=== PATIENT | female | born 1950 | race Caucasian/White ===

== ENCOUNTER 2016-10-05 16:00 | Outpatient (RCR) | payer MEDICARE ==
[~2016-10-05 16:00] MED LIST: AMBIEN 5MG TABLE5 MG PO; AMLODIPINE5 MG PO; AMOXICILLIN 50500 MG; AMOXICILLIN 50500 MG PO; ASCRIPTIN325 MG PO; ASPI325T6 PO; ASPIRIN 32325 MG/TAB PO; ASPIRIN 81M81 MG/TA2 PO; ASPIRIN E.C. 8181 MG PO; ATENOLOL; ATENOLOL25 MG PO; ATENOLOL50 MG PO; ATORVASTATIN; AZO MENOPAUSE1 X PO; BYSTOLIC10 MG PO; BYSTOLIC20 MG PO; CALCIUM 500500 M2 PO; CHROMIUM PO; CIDER VINEGAR PO; CLOPIDOGREL PO; COMBIRESP IH; COMBIVENT INH14.7 GM IH; CRESTOR 10MG10 MG PO; CRESTOR20 MG PO; DARVOCET N 101 UDTAB PO; EPA FISH OIL1000 MG PO; EVENING PRIMRO500 M1 PO; EVENING PRIMRO500 MG PO; FAMILY PHARMAC0.4 MG PO; FIBRO-XL1 CAP PO; FISH OIL CONC1000 MG PO; FISH OIL1 IU PO; FISH OIL1000 MG PO; FLEXERIL 1010 MG/TAB PO; FLOVENT 220MCG7.9 GM IH; FLOVENT0.22 MG/AC IH; FOLIC ACID 11 MG/TA1 PO; FOLIC ACID0.4 MG PO; GEMFIBROZIL600 MG PO; GLUCOPHAGE500 MG/TAB PO; GLUCOSAMIN 500 PO; GLUCOSAMINE & C1 CAP PO; GLUCOSAMINE & C1 TAB PO; GLUCOSAMINE500 M2 PO; GLUMETZA500 MG PO; IRON325 M1 PO; KLONOPIN0.5 MG PO; LEVAQUIN 5500 MG/TA1 PO; LEVAQUIN 750MG750 MG PO; LIPITOR 10MG10 MG PO; LISINOPRIL10 MG PO; LOPID 600M600 MG/TAB PO; M2 CHROMIUM500 MCG PO; MEGA RED; NITRO-DUR0.2 MG/PAT TD; NITROLINGU0.4 MG/ACT SL; NITROSTAT0.4 MG/TAB SL; NORCO 325 MG-51 TAB PO; NORVASC2.5 MG PO; PAXIL 30MG30 MG PO; PAXIL PO; PAXIL10 MG PO; PAXIL20 MG PO; PEPCID 20MG TAB20 MG PO; PEPCID40 MG PO; PLAVIX 75MG TAB75 MG PO; PREDNISONE 5MG5 MG PO; PREMARIN0.3 MG PO; PREMARIN0.625 MG PO; PRILOSEC 20MG20 MG PO; PROPRANOLOL10 MG PO; PSYLLIUM HUSKS PO; RANEXA1000 MG PO; TRICOR200 MG PO; ULTRAM 50MG TAB50 MG PO; VITAMIN B-1000 MCG/T PO; VITAMIN B-12100 MCG PO; VITAMIN B1225 MCG PO; VITAMIN B12500 MCG PO; VITAMIN D1000 IU PO; VITAMIN D31000 IU PO; XANAX0.25 MG PO; ZANAFLEX 4MG TAB4 MG PO; ZESTRIL 10MG10 MG PO; ZESTRIL10 MG PO; ZOCOR PO; ZOCOR40 MG PO; [UNRECOGNIZED DRUG - OTHER] PO; [UNRECOGNIZED DRUG - OTHER] TD
== END 2016-12-01 12:48 | disposition home or self-care (01) ==
LOC: MKS.ESL.PT 16:00
DX: Z86.73 Personal history of transient ischemic attack (TIA), and cerebral infarction without residual deficits (principal)
CPT/HCPCS: G9162-GN; G9163-GN

== ENCOUNTER 2016-12-30 20:16 | Emergency (ER) | payer MEDICARE ==
[~2016-12-30] VITALS: Ht 152.4 cm; Wt 77.3 kg
[2016-12-30 20:24] VITALS: PULSE 68; TEMP 97.7
[2016-12-30 21:11] LABS: INR 1.1 (0.8-3.0)
[2016-12-30 21:13] LABS: PARTIAL THROMBOPLASTIN TIME 38.7 SECONDS (26.0-37.0)
[2016-12-30] MEDS ORDERED: AMOXICILLIN 8751 TAB PO (21:47)
[2016-12-30 21:56] VITALS: BP 130/89
== END 2016-12-30 21:57 | disposition home or self-care (01) ==
LOC: COL.ER 20:16
PROVIDERS: Emergency Medicine
DX: S62.512A Displaced fracture of proximal phalanx of left thumb, initial encounter for closed fracture (principal); S51.852A Open bite of left forearm, initial encounter; S61.052A Open bite of left thumb without damage to nail, initial encounter; W54.0XXA Bitten by dog, initial encounter; Y92.009 Unspecified place in unspecified non-institutional (private) residence as the place of occurrence of the external cause; Z79.01 Long term (current) use of anticoagulants; I10 Essential (primary) hypertension; I25.10 Atherosclerotic heart disease of native coronary artery without angina pectoris; Z95.1 Presence of aortocoronary bypass graft; Z95.5 Presence of coronary angioplasty implant and graft

== ENCOUNTER 2017-01-08 11:20 | Observation (INO) | payer MEDICARE ==
[~2017-01-08] VITALS: Ht 162.6 cm; Wt 79.5 kg
[~2017-01-08 11:20] MED LIST changes: +AMOXICILLIN 8751 TAB PO
[2017-01-08 12:07] LABS: BASO % 0.1 % (0.0-2.0); EOS # 0.2 (0.0-0.7); EOS % 2.2 % (0-4.0); GRAN # 4.5 (1.4-6.5); GRAN % 60.2 % (42.2-75.2); LYMPH # 2.2 (1.2-3.4); LYMPH % 29.5 % (20.0-51.0); MEAN CELL VOLUME 95 fl (80.0-100.0); MEAN CORPUSCULAR HGB CONC 31 g/dl (33.0-37.0); MEAN PLATELET VOLUME 10.5 fl (7.4-10.4); MONO # 0.6 (0.1-0.6); MONO % 7.7 % (1.7-9.3); PLATELET COUNT 230 K/mm3 (130-400); RED BLOOD COUNT 3.28 M/mm3 (4.10-5.30); REDCELL DISTRIBUTION WIDTH-CV 13.7 % (11.5-14.5); WHITE BLOOD COUNT 7.4 K/mm3 (4.8-10.8)
[2017-01-08 12:10] LABS: HEMATOCRIT 31.1 % (37.0-47.0); HEMOGLOBIN 9.7 g/dl (12.5-16.0); MEAN CORPUSCULAR HEMOGLOBIN 30 pg (27.0-31.0)
[2017-01-08 12:12] LABS: INR 1.1 (0.8-3.0)
[2017-01-08 12:15] LABS: PARTIAL THROMBOPLASTIN TIME 38.2 SECONDS (26.0-37.0)
[2017-01-08 12:19] LABS: ADJUSTED CALCIUM 9.2 mg/dL (8.4-10.2); ALANINE AMINOTRANSFERASE 26 U/L (9-52); ALBUMIN 3.8 gm/dL (3.5-5.0); ALKALINE PHOSPHATASE 69 U/L (50-136); ANION GAP 13 mmol/L (7-16); BILIRUBIN,TOTAL 0.6 mg/dL (0.0-1.0); BLOOD UREA NITROGEN 13 mg/dL (7-17); CARBON DIOXIDE 27 mmol/L (22-30); CHLORIDE 101 mmol/L (98-107); CREATINE KINASE 65 U/L (30-135); CREATININE, serum 0.66 mg/dL (0.52-1.25); GLUCOSE 123 mg/dL (74-106); POTASSIUM 4.3 mmol/L (3.4-5.0); SODIUM 141 mmol/L (137-145); TOTAL PROTEIN 7.2 gm/dL (6.4-8.2)
[2017-01-08 12:27] LABS: B-TYPE NATRIURETIC PEPTIDE 67 pg/mL (0-125)
[2017-01-08 12:43] LABS: TROPONIN-I < 0.012 ng/mL (0.000-0.034)
[2017-01-08 12:45] LABS: PH 5 (5-8); SQUAMOUS EPITHELIAL 0-2 /hpf; URINE APPEARANCE Clear; URINE BACTERIA None Seen /hpf; URINE BILIRUBIN Negative (NEGATIVE); URINE BLOOD Negative (NEGATIVE); URINE COLOR Yellow; URINE GLUCOSE Negative (NEGATIVE); URINE KETONE Negative (NEGATIVE); URINE RBC 0-2 /hpf; URINE UROBILINOGEN Negative (NEGATIVE); URINE WBC None Seen /hpf
[2017-01-08] MEDS ORDERED: NORCO 325 MG-7.1 TAB PO (13:55)
[2017-01-08 16:45] VITALS: BP 135/52; PULSE 72; TEMP 98.5
[2017-01-08 19:58] VITALS: BP 140/52; PULSE 73; TEMP 98.4; TEMP 99.2
[2017-01-08 23:04] VITALS: BP 117/40; PULSE 70; TEMP 99.2
[2017-01-09 03:27] VITALS: BP 106/34; PULSE 76; TEMP 99.3
[2017-01-09 07:38] VITALS: BP 126/50; PULSE 64; TEMP 98
[2017-01-09 11:55] VITALS: BP 135/59; PULSE 62; TEMP 97.9
[2017-01-09] MEDS ORDERED: TYLENOL 500MG500 MG PO (13:45)
== END 2017-01-09 19:19 | disposition home or self-care (01) ==
LOC: COL.ER 11:20 → MEDICAL 15:44
PROVIDERS: Emergency Medicine
DX: T40.601A Poisoning by unspecified narcotics, accidental (unintentional), initial encounter (principal); R25.1 Tremor, unspecified; I25.10 Atherosclerotic heart disease of native coronary artery without angina pectoris; E11.9 Type 2 diabetes mellitus without complications; I10 Essential (primary) hypertension
CPT/HCPCS: A9585; G0378; G8987-GO; G8988-GO; J1650; J2060; J2310; J7030

== ENCOUNTER 2017-04-12 16:41 | Emergency (ER) | payer MEDICARE ==
[~2017-04-12] VITALS: Ht 149.9 cm; Wt 78.2 kg
[~2017-04-12 16:41] MED LIST changes: +NORCO 325 MG-7.1 TAB PO; +TYLENOL 500MG500 MG PO
[2017-04-12 16:44] VITALS: TEMP 97.9
[2017-04-12 17:29] LABS: BASO % 0.3 % (0.0-2.0); EOS # 0.1 (0.0-0.7); EOS % 2.1 % (0-4.0); GRAN # 2.8 (1.4-6.5); GRAN % 46.1 % (42.2-75.2); HEMOGLOBIN 10.6 g/dl (12.5-16.0); LYMPH # 2.7 (1.2-3.4); LYMPH % 44.1 % (20.0-51.0); MEAN CELL VOLUME 94 fl (80.0-100.0); MEAN CORPUSCULAR HEMOGLOBIN 30 pg (27.0-31.0); MEAN CORPUSCULAR HGB CONC 32 g/dl (33.0-37.0); MEAN PLATELET VOLUME 11.3 fl (7.4-10.4); MONO # 0.4 (0.1-0.6); MONO % 7.1 % (1.7-9.3); PLATELET COUNT 171 K/mm3 (130-400); RED BLOOD COUNT 3.53 M/mm3 (4.10-5.30); REDCELL DISTRIBUTION WIDTH-CV 14.6 % (11.5-14.5); WHITE BLOOD COUNT 6.1 K/mm3 (4.8-10.8)
[2017-04-12 17:41] LABS: ADJUSTED CALCIUM 9.2 mg/dL (8.4-10.2); ALANINE AMINOTRANSFERASE 22 U/L (9-52); ALBUMIN 3.9 gm/dL (3.5-5.0); ALKALINE PHOSPHATASE 60 U/L (50-136); ANION GAP 11 mmol/L (7-16); BILIRUBIN,TOTAL 0.5 mg/dL (0.0-1.0); BLOOD UREA NITROGEN 21 mg/dL (7-17); CALCIUM 9.1 mg/dL (8.4-10.2); CARBON DIOXIDE 22 mmol/L (22-30); CHLORIDE 104 mmol/L (98-107); CREATININE, serum 0.86 mg/dL (0.52-1.25); GLUCOSE 93 mg/dL (74-106); LIPASE 40 U/L (23-300); POTASSIUM 4.9 mmol/L (3.4-5.0); SODIUM 137 mmol/L (137-145); TOTAL PROTEIN 6.9 gm/dL (6.4-8.2)
[2017-04-12 17:45] LABS: C-REACTIVE PROTEIN < 0.5 mg/dL (0.0-0.9)
[2017-04-12 17:51] LABS: TROPONIN-I < 0.012 ng/mL (0.000-0.034)
[2017-04-12 17:54] LABS: ERYTHROCYTE SEDIMENTATION RATE 22 mm/hr (0-30)
[2017-04-12 18:01] LABS: PH 5 (5-8); URINE APPEARANCE Hazy; URINE BACTERIA Rare /hpf; URINE BILIRUBIN Negative (NEGATIVE); URINE BLOOD Negative (NEGATIVE); URINE COLOR Yellow; URINE GLUCOSE Negative (NEGATIVE); URINE KETONE Negative (NEGATIVE); URINE RBC 20-50 /hpf; URINE UROBILINOGEN Negative (NEGATIVE)
[2017-04-12 18:03] LABS: URINE WBC >50 /hpf
[2017-04-12 18:51] LABS: PH 5 (5-8); SQUAMOUS EPITHELIAL 0-2 /hpf; URINE APPEARANCE Clear; URINE BACTERIA None Seen /hpf; URINE BILIRUBIN Negative (NEGATIVE); URINE BLOOD Negative (NEGATIVE); URINE COLOR Straw; URINE GLUCOSE Negative (NEGATIVE); URINE KETONE Negative (NEGATIVE); URINE RBC 0-2 /hpf; URINE UROBILINOGEN Negative (NEGATIVE)
[2017-04-12 19:23] VITALS: BP 134/60; PULSE 62
== END 2017-04-12 19:24 | disposition home or self-care (01) ==
LOC: COL.ER 16:41
PROVIDERS: Emergency Medicine
DX: R25.8 Other abnormal involuntary movements (principal); D64.9 Anemia, unspecified; I10 Essential (primary) hypertension; I69.851 Hemiplegia and hemiparesis following other cerebrovascular disease affecting right dominant side; E11.9 Type 2 diabetes mellitus without complications; Z95.1 Presence of aortocoronary bypass graft; Z79.84 Long term (current) use of oral hypoglycemic drugs; Z79.02 Long term (current) use of antithrombotics/antiplatelets
CPT/HCPCS: J7030

== ENCOUNTER 2017-07-18 20:26 | Emergency (ER) | payer MEDICARE ==
[~2017-07-18] VITALS: Ht 149.9 cm; Wt 77.7 kg
[2017-07-18 20:29] VITALS: TEMP 98.8
[2017-07-18 21:26] LABS: BASO % 0.2 % (0.0-2.0); EOS # 0.1 (0.0-0.7); EOS % 1.4 % (0-4.0); GRAN # 2.3 (1.4-6.5); GRAN % 41.4 % (42.2-75.2); LYMPH # 2.7 (1.2-3.4); MEAN CELL VOLUME 95 fl (80.0-100.0); MEAN CORPUSCULAR HGB CONC 32 g/dl (33.0-37.0); MEAN PLATELET VOLUME 11.1 fl (7.4-10.4); MONO # 0.4 (0.1-0.6); MONO % 7.6 % (1.7-9.3); PLATELET COUNT 183 K/mm3 (130-400); RED BLOOD COUNT 3.39 M/mm3 (4.10-5.30); REDCELL DISTRIBUTION WIDTH-CV 14.4 % (11.5-14.5); WHITE BLOOD COUNT 5.5 K/mm3 (4.8-10.8)
[2017-07-18 21:30] LABS: HEMATOCRIT 32.3 % (37.0-47.0); HEMOGLOBIN 10.3 g/dl (12.5-16.0); MEAN CORPUSCULAR HEMOGLOBIN 30 pg (27.0-31.0)
[2017-07-18 21:41] LABS: ADJUSTED CALCIUM 9.4 mg/dL (8.4-10.2); ALBUMIN 4.2 gm/dL (3.5-5.0); BILIRUBIN,TOTAL 0.4 mg/dL (0.0-1.0); CALCIUM 9.6 mg/dL (8.4-10.2); CREATININE, serum 0.89 mg/dL (0.52-1.25); TOTAL PROTEIN 7.1 gm/dL (6.4-8.2)
[2017-07-18] MEDS ORDERED: FLEXERIL 1010 MG/TAB PO (21:51)
[2017-07-18 22:32] VITALS: BP 128/62; PULSE 72
== END 2017-07-18 22:32 | disposition home or self-care (01) ==
LOC: COL.ER 20:26
PROVIDERS: Emergency Medicine
DX: G25.3 Myoclonus (principal); E11.9 Type 2 diabetes mellitus without complications; I25.10 Atherosclerotic heart disease of native coronary artery without angina pectoris; I10 Essential (primary) hypertension; Z86.73 Personal history of transient ischemic attack (TIA), and cerebral infarction without residual deficits; Z95.5 Presence of coronary angioplasty implant and graft; Z90.710 Acquired absence of both cervix and uterus; Z87.891 Personal history of nicotine dependence; Z79.82 Long term (current) use of aspirin; Z79.84 Long term (current) use of oral hypoglycemic drugs

== ENCOUNTER 2017-09-18 08:32 | Emergency (ER) | payer MEDICARE ==
[~2017-09-18] VITALS: Ht 152.4 cm; Wt 73.6 kg
[2017-09-18 08:37] VITALS: BP 154/70; TEMP 97.8
[2017-09-18 09:15] LABS: BASO % 0.4 % (0.0-2.0); EOS # 0.1 (0.0-0.7); EOS % 2.6 % (0-4.0); GRAN # 2.9 (1.4-6.5); GRAN % 54.1 % (42.2-75.2); LYMPH # 1.9 (1.2-3.4); MEAN CELL VOLUME 99 fl (80.0-100.0); MEAN CORPUSCULAR HGB CONC 31 g/dl (33.0-37.0); MONO # 0.4 (0.1-0.6); MONO % 7.7 % (1.7-9.3); PLATELET COUNT 197 K/mm3 (130-400); RED BLOOD COUNT 3.41 M/mm3 (4.10-5.30); WHITE BLOOD COUNT 5.4 K/mm3 (4.8-10.8)
[2017-09-18 09:16] LABS: HEMATOCRIT 33.9 % (37.0-47.0); HEMOGLOBIN 10.6 g/dl (12.5-16.0); MEAN CORPUSCULAR HEMOGLOBIN 31 pg (27.0-31.0)
[2017-09-18 09:23] LABS: PROTHROMBIN TIME 11.5 SECONDS (9.7-12.8)
[2017-09-18 09:25] LABS: ADJUSTED CALCIUM 9.2 mg/dL (8.4-10.2); ALANINE AMINOTRANSFERASE 24 U/L (9-52); ALBUMIN 3.7 gm/dL (3.5-5.0); ALKALINE PHOSPHATASE 47 U/L (50-136); ANION GAP 7 mmol/L (7-16); BILIRUBIN,TOTAL 0.3 mg/dL (0.0-1.0); BLOOD UREA NITROGEN 16 mg/dL (7-17); CARBON DIOXIDE 27 mmol/L (22-30); CHLORIDE 108 mmol/L (98-107); GLUCOSE 87 mg/dL (74-106); MAGNESIUM 1.8 mg/dL (1.6-2.3); PARTIAL THROMBOPLASTIN TIME 27.2 SECONDS (26.0-37.0); POTASSIUM 4.6 mmol/L (3.4-5.0); SODIUM 142 mmol/L (137-145); TOTAL PROTEIN 6.1 gm/dL (6.4-8.2)
[2017-09-18 09:38] LABS: TROPONIN-I < 0.012 ng/mL (0.000-0.034)
[2017-09-18 10:38] LABS: COLLECTION METHOD CLEAN CATCH
[2017-09-18 10:54] LABS: MUCOUS Present /lpf; PH 5 (5-8); SQUAMOUS EPITHELIAL 0-2 /hpf; URINE APPEARANCE Clear; URINE BACTERIA Rare /hpf; URINE BILIRUBIN Negative (NEGATIVE); URINE BLOOD Negative (NEGATIVE); URINE COLOR Yellow; URINE GLUCOSE Negative (NEGATIVE); URINE KETONE Negative (NEGATIVE); URINE LEUKOCYTE ESTERASE 2+ (NEGATIVE); URINE PROTEIN(semi-quant) Negative (NEGATIVE); URINE RBC 0-2 /hpf; URINE UROBILINOGEN Negative (NEGATIVE)
[2017-09-18] MEDS ORDERED: MACROBID 1100 MG/CAP PO (11:13)
[2017-09-18 12:27] VITALS: PULSE 55
== END 2017-09-18 12:28 | disposition home or self-care (01) ==
LOC: COL.ER 08:32
PROVIDERS: Physician Assistant
DX: N39.0 Urinary tract infection, site not specified (principal); R41.0 Disorientation, unspecified; I10 Essential (primary) hypertension; I25.10 Atherosclerotic heart disease of native coronary artery without angina pectoris; I25.2 Old myocardial infarction; Z86.73 Personal history of transient ischemic attack (TIA), and cerebral infarction without residual deficits; Z79.82 Long term (current) use of aspirin; Z79.02 Long term (current) use of antithrombotics/antiplatelets
CPT/HCPCS: J7040

== ENCOUNTER → 2017-09-24 | Outpatient (CLI) | payer MEDICARE ==
[~2017-09-24] MED LIST changes: +MACROBID 1100 MG/CAP PO
== END ==
LOC: COL.RAD 09-18 07:30
DX: G25.3 Myoclonus (principal)
CPT/HCPCS: A9585

== ENCOUNTER 2018-03-01 12:08 | Observation (INO) | payer MEDICARE ==
[~2018-03-01] VITALS: Ht 149.9 cm; Wt 69.8 kg
[~2018-03-01 12:08] MED LIST changes: +KEPPRA 500MG500 MG PO; +KLONOPIN 1MG1 MG PO; +ZESTRIL2.5 MG PO
[2018-03-01 13:17] LABS: BASO % 0.1 % (0.0-2.0); EOS # 0.1 (0.0-0.7); EOS % 1.1 % (0-4.0); GRAN # 6.4 (1.4-6.5); GRAN % 72.1 % (42.2-75.2); LYMPH # 1.8 (1.2-3.4); LYMPH % 19.6 % (20.0-51.0); MEAN CELL VOLUME 94 fl (80.0-100.0); MEAN CORPUSCULAR HGB CONC 32 g/dl (33.0-37.0); MEAN PLATELET VOLUME 11.2 fl (7.4-10.4); MONO # 0.6 (0.1-0.6); MONO % 6.8 % (1.7-9.3); PLATELET COUNT 212 K/mm3 (130-400); RED BLOOD COUNT 3.54 M/mm3 (4.10-5.30); REDCELL DISTRIBUTION WIDTH-CV 15.2 % (11.5-14.5)
[2018-03-01 13:24] LABS: HEMATOCRIT 33.2 % (37.0-47.0); HEMOGLOBIN 10.6 g/dl (12.5-16.0); MEAN CORPUSCULAR HEMOGLOBIN 30 pg (27.0-31.0)
[2018-03-01 13:28] LABS: ALANINE AMINOTRANSFERASE 23 U/L (9-52); ALBUMIN 3.8 gm/dL (3.5-5.0); ALKALINE PHOSPHATASE 65 U/L (50-136); ANION GAP 13 mmol/L (7-16); AST,SGOT 19 U/L (15-37); BILIRUBIN,TOTAL 0.2 mg/dL (0.0-1.0); BLOOD UREA NITROGEN 15 mg/dL (7-17); CARBON DIOXIDE 26 mmol/L (22-30); CHLORIDE 103 mmol/L (98-107); CREATININE, serum 0.62 mg/dL (0.52-1.25); GLUCOSE 109 mg/dL (74-106); POTASSIUM 4.9 mmol/L (3.4-5.0); SODIUM 141 mmol/L (137-145); TOTAL PROTEIN 7.4 gm/dL (6.4-8.2)
[2018-03-01 13:40] LABS: TROPONIN-I < 0.012 ng/mL (0.000-0.034)
[2018-03-01 18:01] VITALS: BP 124/61; PULSE 71; TEMP 97.7
[2018-03-01 19:06] VITALS: BP 108/50; PULSE 72; TEMP 98.4
[2018-03-01] MEDS ORDERED: MAG-OX 400400 MG/TAB PO (19:08)
[2018-03-01] MEDS ORDERED: ZESTRIL 10MG10 MG PO (19:09)
[2018-03-01] MEDS ORDERED: IMDUR 30MG30 MG/TAB PO (19:09)
[2018-03-01] MEDS ORDERED: NORCO 325 MG-51 TAB PO (19:11)
[2018-03-01] MEDS ORDERED: TOFRANIL 10MG T10 MG PO (19:12)
[2018-03-01] MEDS ORDERED: COMBIRESP IH (19:17)
[2018-03-01 23:43] VITALS: BP 106/54; PULSE 71; TEMP 97.6
[2018-03-02 06:00] VITALS: BP 122/55; PULSE 63
[2018-03-02 07:21] LABS: BASO % 0.2 % (0.0-2.0); EOS # 0.1 (0.0-0.7); EOS % 1.8 % (0-4.0); GRAN # 2.3 (1.4-6.5); LYMPH # 2.4 (1.2-3.4); LYMPH % 44.3 % (20.0-51.0); MEAN CELL VOLUME 93 fl (80.0-100.0); MEAN CORPUSCULAR HGB CONC 32 g/dl (33.0-37.0); MEAN PLATELET VOLUME 11.5 fl (7.4-10.4); MONO # 0.6 (0.1-0.6); MONO % 10.5 % (1.7-9.3); PLATELET COUNT 215 K/mm3 (130-400); REDCELL DISTRIBUTION WIDTH-CV 15.4 % (11.5-14.5)
[2018-03-02 07:25] LABS: INR 1.2 (0.8-3.0); PROTHROMBIN TIME 13.5 SECONDS (9.7-12.8)
[2018-03-02 07:33] LABS: HEMATOCRIT 32.4 % (37.0-47.0); HEMOGLOBIN 10.4 g/dl (12.5-16.0); MEAN CORPUSCULAR HEMOGLOBIN 30 pg (27.0-31.0)
[2018-03-02 07:35] LABS: ALBUMIN 3.7 gm/dL (3.5-5.0); BILIRUBIN,TOTAL 0.3 mg/dL (0.0-1.0); CALCIUM 9.2 mg/dL (8.4-10.2); CREATININE, serum 0.75 mg/dL (0.52-1.25); POTASSIUM 3.8 mmol/L (3.4-5.0); TOTAL PROTEIN 7.1 gm/dL (6.4-8.2)
[2018-03-02 08:50] VITALS: BP 110/49; PULSE 71; TEMP 97.7
[2018-03-02] MEDS ORDERED: ZESTRIL 10MG10 MG PO (10:48)
[2018-03-02] MEDS ORDERED: LASIX 20MG TABL20 MG PO (10:49)
[2018-03-02] MEDS ORDERED: KEPPRA 500MG500 MG PO (10:51)
[2018-03-02 12:18] VITALS: BP 118/37; PULSE 70; TEMP 98.7
== END 2018-03-02 13:30 | disposition home or self-care (01) ==
LOC: COL.ER 12:08 → MEDICAL 16:02
PROVIDERS: Emergency Medicine; Internal Medicine Pulmonary Disease
DX: R07.9 Chest pain, unspecified (principal); I25.10 Atherosclerotic heart disease of native coronary artery without angina pectoris; E78.5 Hyperlipidemia, unspecified; I10 Essential (primary) hypertension; R55 Syncope and collapse; R42 Dizziness and giddiness; R25.1 Tremor, unspecified; E11.9 Type 2 diabetes mellitus without complications; K21.9 Gastro-esophageal reflux disease without esophagitis; F03.90 Unspecified dementia, unspecified severity, without behavioral disturbance, psychotic disturbance, mood disturbance, and anxiety; F32.9 Major depressive disorder, single episode, unspecified; Z95.1 Presence of aortocoronary bypass graft; Z95.5 Presence of coronary angioplasty implant and graft; Z79.51 Long term (current) use of inhaled steroids; Z79.01 Long term (current) use of anticoagulants; Z79.84 Long term (current) use of oral hypoglycemic drugs; Z79.82 Long term (current) use of aspirin; Z90.710 Acquired absence of both cervix and uterus; Z88.8 Allergy status to other drugs, medicaments and biological substances; Z86.73 Personal history of transient ischemic attack (TIA), and cerebral infarction without residual deficits
CPT/HCPCS: 99238; J1650; J1940; J7030

== ENCOUNTER → 2018-08-22 | Outpatient (CLI) | payer MEDICARE ==
[~2018-08-22] MED LIST changes: +IMDUR 30MG30 MG/TAB PO; +LASIX 20MG TABL20 MG PO; +MAG-OX 400400 MG/TAB PO; +TOFRANIL 10MG T10 MG PO
== END ==
LOC: COL.RAD 09:49
DX: Z01.812 Encounter for preprocedural laboratory examination (principal); I74.09 Other arterial embolism and thrombosis of abdominal aorta; I70.1 Atherosclerosis of renal artery; I70.0 Atherosclerosis of aorta; Z90.710 Acquired absence of both cervix and uterus
CPT/HCPCS: Q9967

== ENCOUNTER → 2018-09-25 | Outpatient (CLI) | payer MEDICARE | LOC: COL.RAD 07:29 | DX: G31.9 Degenerative disease of nervous system, unspecified (principal) ==

== ENCOUNTER 2018-10-02 10:15 | Day surgery (SDC) | payer MEDICARE ==
[~2018-10-02] VITALS: Ht 149.9 cm; Wt 68.0 kg
[~2018-10-02 10:15] MED LIST changes: +CRESTOR40 MG PO; +RANEXA 500MG T500 MG PO; -RANEXA1000 MG PO
[2018-10-02 10:40] VITALS: BP 130/64; PULSE 71; TEMP 97.8
[2018-10-02] MEDS ORDERED: ASPIRIN 81M81 MG/TA2 PO (11:13)
[2018-10-02] MEDS ORDERED: ABILIFY5 MG PO (11:14)
[2018-10-02] MEDS ORDERED: ARICEPT10 MG PO (11:16)
[2018-10-02] MEDS ORDERED: LOPID 600M600 MG/TAB PO (11:17)
[2018-10-02] MEDS ORDERED: MASON NATURAL1200 MG PO (11:19)
[2018-10-02] MEDS ORDERED: EFFEXOR-XR150 MG PO (11:20)
[2018-10-02] MEDS ORDERED: PLETAL50 MG PO (11:22)
[2018-10-02 13:49] VITALS: BP 108/48; PULSE 68; TEMP 97.2
[2018-10-02] MEDS ORDERED: NORCO 325 MG-51 TAB PO (13:52)
[2018-10-02 14:04] VITALS: BP 112/45; PULSE 68
[2018-10-02 14:19] VITALS: BP 137/49; PULSE 64
[2018-10-02 14:34] VITALS: BP 125/56; PULSE 63
== END 2018-10-02 15:14 | disposition home or self-care (01) ==
LOC: SDCO 10:15
DX: R51 Headache (principal); R70.0 Elevated erythrocyte sedimentation rate; I25.118 Atherosclerotic heart disease of native coronary artery with other forms of angina pectoris; Z79.01 Long term (current) use of anticoagulants; Z79.82 Long term (current) use of aspirin; Z79.899 Other long term (current) drug therapy; G47.33 Obstructive sleep apnea (adult) (pediatric); J44.9 Chronic obstructive pulmonary disease, unspecified; K21.9 Gastro-esophageal reflux disease without esophagitis; E11.9 Type 2 diabetes mellitus without complications; Z79.84 Long term (current) use of oral hypoglycemic drugs; I25.2 Old myocardial infarction; I69.351 Hemiplegia and hemiparesis following cerebral infarction affecting right dominant side; I11.0 Hypertensive heart disease with heart failure; I50.9 Heart failure, unspecified; F32.9 Major depressive disorder, single episode, unspecified; F03.90 Unspecified dementia, unspecified severity, without behavioral disturbance, psychotic disturbance, mood disturbance, and anxiety; M17.0 Bilateral primary osteoarthritis of knee; Z95.1 Presence of aortocoronary bypass graft; D64.9 Anemia, unspecified; G40.409 Other generalized epilepsy and epileptic syndromes, not intractable, without status epilepticus; E78.5 Hyperlipidemia, unspecified; K58.9 Irritable bowel syndrome, unspecified; M47.896 Other spondylosis, lumbar region; Z82.49 Family history of ischemic heart disease and other diseases of the circulatory system; Z87.891 Personal history of nicotine dependence
CPT/HCPCS: J0690; J2704; J7030

== ENCOUNTER 2018-10-12 07:00 | Emergency (ER) | payer MEDICARE ==
[~2018-10-12] VITALS: Ht 152.4 cm; Wt 68.2 kg
[~2018-10-12 07:00] MED LIST changes: +ABILIFY5 MG PO; +ARICEPT10 MG PO; +EFFEXOR-XR150 MG PO; +MASON NATURAL1200 MG PO; +PLETAL50 MG PO
[2018-10-12 07:10] VITALS: TEMP 97
[2018-10-12 07:21] LABS: BASO % 0.5 % (0.0-2.0); EOS # 0.2 (0.0-0.7); EOS % 2.9 % (0-4.0); GRAN % 48.5 % (42.2-75.2); HEMOGLOBIN 11.4 g/dl (12.5-16.0); LYMPH # 2.5 (1.2-3.4); LYMPH % 40.1 % (20.0-51.0); MEAN CELL VOLUME 94 fl (80.0-100.0); MEAN CORPUSCULAR HEMOGLOBIN 30 pg (27.0-31.0); MEAN CORPUSCULAR HGB CONC 32 g/dl (33.0-37.0); MONO # 0.5 (0.1-0.6); MONO % 7.8 % (1.7-9.3); PLATELET COUNT 242 K/mm3 (130-400); RED BLOOD COUNT 3.87 M/mm3 (4.10-5.30); REDCELL DISTRIBUTION WIDTH-CV 15.8 % (11.5-14.5)
[2018-10-12 07:26] LABS: HEMATOCRIT 36.2 % (37.0-47.0)
[2018-10-12 07:28] LABS: INR 0.9 (0.8-3.0); PROTHROMBIN TIME 10.7 SECONDS (9.7-12.8)
[2018-10-12 07:29] LABS: ALANINE AMINOTRANSFERASE 31 U/L (9-52); ALBUMIN 4.2 gm/dL (3.5-5.0); ALKALINE PHOSPHATASE 81 U/L (50-136); ANION GAP 6 mmol/L (7-16); AST,SGOT 22 U/L (15-37); BILIRUBIN,TOTAL 0.3 mg/dL (0.0-1.0); BLOOD UREA NITROGEN 13 mg/dL (7-17); CALCIUM 9.5 mg/dL (8.4-10.2); CARBON DIOXIDE 27 mmol/L (22-30); CHLORIDE 109 mmol/L (98-107); CREATININE, serum 0.67 mg/dL (0.52-1.25); GLUCOSE 101 mg/dL (74-106); SODIUM 142 mmol/L (137-145); TOTAL PROTEIN 7.9 gm/dL (6.4-8.2)
[2018-10-12 07:30] LABS: PARTIAL THROMBOPLASTIN TIME 42.5 SECONDS (26.0-37.0)
[2018-10-12 07:41] LABS: TROPONIN-I < 0.012 ng/mL (0.000-0.034)
[2018-10-12 10:55] VITALS: BP 122/48; PULSE 72
== END 2018-10-12 11:21 | disposition home or self-care (01) ==
LOC: COL.ER 07:00
PROVIDERS: Family Medicine
DX: R07.89 Other chest pain (principal); I10 Essential (primary) hypertension; I50.9 Heart failure, unspecified; I25.10 Atherosclerotic heart disease of native coronary artery without angina pectoris; Z95.1 Presence of aortocoronary bypass graft; Z86.73 Personal history of transient ischemic attack (TIA), and cerebral infarction without residual deficits; Z95.5 Presence of coronary angioplasty implant and graft; Z79.84 Long term (current) use of oral hypoglycemic drugs; Z79.02 Long term (current) use of antithrombotics/antiplatelets

== ENCOUNTER → 2018-10-23 | Outpatient (CLI) | payer MEDICARE | LOC: MC.RAD 13:49 | DX: N63.20 Unspecified lump in the left breast, unspecified quadrant (principal) | CPT/HCPCS: G0279 ==

== ENCOUNTER 2019-01-21 16:31 | Observation (INO) | payer MEDICARE ==
[~2019-01-21] VITALS: Ht 149.9 cm; Wt 71.5 kg
[2019-01-21 16:57] LABS: BASO % 0.2 % (0.0-2.0); EOS % 0.7 % (0-4.0); GRAN # 2.4 (1.4-6.5); GRAN % 40.2 % (42.2-75.2); HEMOGLOBIN 11.1 g/dl (12.5-16.0); LYMPH % 49.9 % (20.0-51.0); MEAN CELL VOLUME 92 fl (80.0-100.0); MEAN CORPUSCULAR HEMOGLOBIN 29 pg (27.0-31.0); MEAN CORPUSCULAR HGB CONC 32 g/dl (33.0-37.0); MEAN PLATELET VOLUME 10.5 fl (7.4-10.4); MONO # 0.5 (0.1-0.6); MONO % 8.5 % (1.7-9.3); PLATELET COUNT 242 K/mm3 (130-400); REDCELL DISTRIBUTION WIDTH-CV 15.3 % (11.5-14.5)
[2019-01-21 16:59] LABS: HEMATOCRIT 35.1 % (37.0-47.0); PROTHROMBIN TIME 11.6 SECONDS (9.7-12.8)
[2019-01-21] MEDS ORDERED: MAG-OX 400400 MG/TAB PO (18:29)
[2019-01-21] MEDS ORDERED: ZESTRIL 5MG5 MG PO (18:31)
[2019-01-21] MEDS ORDERED: CARDENE 20MG CA20 M1 PO (18:32)
[2019-01-21] MEDS ORDERED: TOFRANIL 10MG T10 MG PO (18:33)
[2019-01-21 18:34] LABS: ALANINE AMINOTRANSFERASE 18 U/L (9-52); ALBUMIN 4.2 gm/dL (3.5-5.0); ALKALINE PHOSPHATASE 82 U/L (50-136); ANION GAP 10 mmol/L (7-16); AST,SGOT 51 U/L (15-37); BILIRUBIN,TOTAL 0.3 mg/dL (0.0-1.0); BLOOD UREA NITROGEN 18 mg/dL (7-17); CALCIUM 9.3 mg/dL (8.4-10.2); CARBON DIOXIDE 24 mmol/L (22-30); CHLORIDE 106 mmol/L (98-107); CREATININE, serum 0.68 mg/dL (0.52-1.25); GLUCOSE 118 mg/dL (74-106); POTASSIUM 3.8 mmol/L (3.4-5.0); SODIUM 139 mmol/L (137-145); TOTAL PROTEIN 7.7 gm/dL (6.4-8.2)
[2019-01-21 18:38] LABS: C-REACTIVE PROTEIN < 0.5 mg/dL (0.0-0.9)
[2019-01-21 20:12] VITALS: BP 125/43; PULSE 53; TEMP 97.5
[2019-01-21 23:50] VITALS: BP 109/36; PULSE 57; TEMP 97.6
[2019-01-22 03:27] VITALS: BP 105/45; PULSE 59; TEMP 98.2
--- NOTE | 2019-01-22 05:58 | NUR ---
Pt slept some during the night, some C/O pain, medications given to relieve, VS haver been stable, initial assessments completed.
[2019-01-22 06:47] LABS: BASO % 0.2 % (0.0-2.0); EOS % 0.4 % (0-4.0); GRAN # 2.4 (1.4-6.5); GRAN % 47.1 % (42.2-75.2); LYMPH # 2.1 (1.2-3.4); MEAN CELL VOLUME 93 fl (80.0-100.0); MEAN CORPUSCULAR HGB CONC 32 g/dl (33.0-37.0); MEAN PLATELET VOLUME 10.9 fl (7.4-10.4); MONO # 0.5 (0.1-0.6); MONO % 10.1 % (1.7-9.3); PLATELET COUNT 220 K/mm3 (130-400); RED BLOOD COUNT 3.29 M/mm3 (4.10-5.30); REDCELL DISTRIBUTION WIDTH-CV 15.3 % (11.5-14.5)
[2019-01-22 06:57] LABS: HEMATOCRIT 30.6 % (37.0-47.0); HEMOGLOBIN 9.7 g/dl (12.5-16.0); MEAN CORPUSCULAR HEMOGLOBIN 29 pg (27.0-31.0)
[2019-01-22 06:58] VITALS: BP 111/39; PULSE 63; TEMP 98.1
[2019-01-22 06:58] LABS: CREATININE, serum 0.74 mg/dL (0.52-1.25); POTASSIUM 4.2 mmol/L (3.4-5.0)
--- NOTE | 2019-01-22 08:54 | NUR ---
Patient is alert and oriented x 3. She denies any residual from last nights events. She states that she has not had a seizure like that in a long time. Patient neuro checks are completely normal. Denies any pain or discomfort. Reviewed POC with patient. Call light in place with instruction on usage. Patient given menu and phone so she can order breakfast. Medications reviewed and given at this time
[2019-01-22 11:43] VITALS: BP 108/41; PULSE 59; TEMP 98.2
--- NOTE | 2019-01-22 12:22 | NUR ---
First visit from the bullet assembly press operator. No needs right now.
--- NOTE | 2019-01-22 13:20 | NUR ---
Telemetry discontinued as per orders. Patient is resting in bed. Wanting to know when cartoid US is going to happen. Will call and check for patient. Family is at bedside. Denies any c/o pain/discomfort
--- NOTE | 2019-01-22 15:51 | NUR ---
CRISTOBAL and CRISTOBAL student met with the patient and patient's daughter, Jasmin, to discuss discharge plan. The patient lives in [place] with her grandson, Jose, and his girlfriend. She reports independence with ADLs and has a cane, walker, and a CPAP from [facility]. The patient's PCP is Dr. Rizwana Herrera and she receives her medications at the [facility]. She reports no difficulties obtaining her meds. The patient's living will is in EMR. The patient's granddaughter, Ayesha, also visited the patient and informed SW that she is the patient's DPOA-HC. Ayesha informed CRISTOBAL that she had spoke to the patient last night about getting home health services started. CRISTOBAL then discussed home health services with the patient. The patient reports that she was scheduled for outpatient therapy at the [facility] on prior to being hospitalized, but now would be interested in home health upon discharge. CRISTOBAL provided the patient with Medicare.gov's list of home health agencies that serve [place]. The patient reports that she will discuss the agencies with her granddaughter, Ayesha, before making a decision on one. CRISTOBAL also checked EMR and there was not a copy of the patient's DPOA-HC. CRISTOBAL informed the patient and her daughter. SW to continue to follow.
[2019-01-22 16:22] VITALS: BP 111/38; PULSE 61; TEMP 98.6
--- NOTE | 2019-01-22 17:51 | NUR ---
Patient has rested throughout the day. Dr. Wright has been called to consult regarding seizures/TIA's. Per patient report cartoid US have not been done. Will leave reminder to do first thing in the AM. No other needs tonight. Supper ordered
--- NOTE | 2019-01-22 22:08 | NUR ---
Patient assessed at this time. Denies having pain and discomfort. Neuro checks WNL for patient. Peripheral INT to left forearm with redness, bruising, edema, and pain. INT D/C'd and started new INT to right forearm. Patient tolerated well. Voices no needs or concerns at this time. Daughter at bedside. Laying in bed watching TV at this time. Call light is within reach.
[2019-01-23 00:30] VITALS: BP 110/44; PULSE 64; TEMP 97.4
--- NOTE | 2019-01-23 02:49 | NUR ---
Patient voices no needs or concerns at this time. Denies having pain and discomfort. Voices no other needs or concerns at this time. Call light is within reach.
[2019-01-23 05:00] VITALS: BP 112/64; PULSE 64; TEMP 97.6
--- NOTE | 2019-01-23 06:32 | NUR ---
Continues to deny having pain and discomfort. Patient updated on EEG and Carotid ultrasound that is supposed to be done today. Voices no questions or concerns at this time. Resting in bed with eyes closed at this time. Call light is within reach.
[2019-01-23 09:00] VITALS: BP 114/51; PULSE 55
--- NOTE | 2019-01-23 09:30 | NUR ---
Pt sitting on side of bed. Denies any pain or dizziness. Pt stated around 7am she began to feel slighty disoriented, but denies any shaking. Pt is alert and oriented, breathing even and unlabored. Morning assessment completed. Call light in reach.
--- NOTE | 2019-01-23 09:45 | NUR ---
TURNED 02 TO 1 LITER. WILL CONTINUE TO MONITOR
--- NOTE | 2019-01-23 10:40 | NUR ---
CRISTOBAL gold followed up with the patient about a preference for a home health agency. [facility] CRISTOBAL gold called [facility] and faxed referral[facility] the [facility]. CRISTOBAL gold to inform the patient.
[2019-01-23] MEDS ORDERED: LAMICTAL 25MG T25 MG PO (10:47)
--- NOTE | 2019-01-23 12:45 | NUR ---
Pt currently undergoing EEG
[2019-01-23 13:23] VITALS: BP 84/32; PULSE 56; TEMP 97.9
--- NOTE | 2019-01-23 15:40 | NUR ---
Pt lying in bed. gave discharge paperwork. Asked and answered all questions. Pt has family at bedside. Pt escorted out via wheelchair with [facility] [facility] staff.
--- NOTE | 2019-01-23 16:00 | NUR ---
Ila, at [facility], contacted CRISTOBAL to inform that after futher review; their office feels that the patient is at their baseline. She reports that the patient's insurance may not cover, but that they could come out to do an initial PT eval. CRISTOBAL then met with the patient to inform. The patient reports that she already has outpatient therapy set up at [facility] on [address] for her neck and that she will just resume that appointment. The patient reports that she will consult Dr. Herrera if outpatient therapy is too much. The patient is to discharge back home today, 01/23. Transportation provided by the patient's daughter. No additional needs at this time.
== END 2019-01-23 15:40 | disposition home or self-care (01) ==
LOC: COL.ER 16:31 → MEDICAL 17:22
PROVIDERS: Family Medicine; Nurse Practitioner; ADMIT Hospitalist
DX: R07.9 Chest pain, unspecified (principal); I25.10 Atherosclerotic heart disease of native coronary artery without angina pectoris; F41.9 Anxiety disorder, unspecified; F32.9 Major depressive disorder, single episode, unspecified; Z86.73 Personal history of transient ischemic attack (TIA), and cerebral infarction without residual deficits; E11.9 Type 2 diabetes mellitus without complications; K21.9 Gastro-esophageal reflux disease without esophagitis; F03.90 Unspecified dementia, unspecified severity, without behavioral disturbance, psychotic disturbance, mood disturbance, and anxiety; I50.22 Chronic systolic (congestive) heart failure; Z79.51 Long term (current) use of inhaled steroids; Z79.02 Long term (current) use of antithrombotics/antiplatelets; Z79.82 Long term (current) use of aspirin; Z95.5 Presence of coronary angioplasty implant and graft; Z95.1 Presence of aortocoronary bypass graft; E78.5 Hyperlipidemia, unspecified; I10 Essential (primary) hypertension; R51 Headache; Z90.710 Acquired absence of both cervix and uterus; Z83.3 Family history of diabetes mellitus; Z82.49 Family history of ischemic heart disease and other diseases of the circulatory system; Z82.3 Family history of stroke; Z87.891 Personal history of nicotine dependence; Z88.8 Allergy status to other drugs, medicaments and biological substances; I25.2 Old myocardial infarction; G47.33 Obstructive sleep apnea (adult) (pediatric)
CPT/HCPCS: G0378

== ENCOUNTER 2019-02-07 10:52 | Outpatient (RCR) | payer MEDICARE ==
[~2019-02-07 10:52] MED LIST changes: +CARDENE 20MG CA20 M1 PO; +LAMICTAL 25MG T25 MG PO; +ZESTRIL 5MG5 MG PO
== END 2019-05-08 | disposition still patient (30) ==
LOC: MKS.ESL.PT
DX: G44.89 Other headache syndrome (principal)

== ENCOUNTER → 2019-04-25 | Outpatient (CLI) | payer MEDICARE | LOC: COL.RAD 13:00 | DX: K21.9 Gastro-esophageal reflux disease without esophagitis (principal) ==

== ENCOUNTER → 2019-05-02 | Outpatient (CLI) | payer MEDICARE ==
[2019-05-02 17:22] LABS: CALCIUM 9.3 mg/dL (8.4-10.2); CREATININE, serum 0.86 (0.52-1.25); POTASSIUM 4.5 mmol/L (3.4-5.0)
== END ==
LOC: COL.LAB 16:26
PROVIDERS: Registered Nurse
DX: M79.605 Pain in left leg (principal); R60.0 Localized edema; R80.9 Proteinuria, unspecified

== ENCOUNTER → 2019-07-14 | Outpatient (CLI) | payer MEDICARE | LOC: COL.RAD 08:00 | DX: R10.84 Generalized abdominal pain (principal); Z90.710 Acquired absence of both cervix and uterus | CPT/HCPCS: Q9967 ==

== ENCOUNTER 2019-07-21 14:17 | Emergency (ER) | payer MEDICARE ==
[~2019-07-21] VITALS: Ht 149.9 cm; Wt 75.8 kg
[2019-07-21 14:21] VITALS: TEMP 98.3
[2019-07-21 15:09] LABS: BASO % 0.2 % (0.0-2.0); EOS # 0.1 (0.0-0.7); EOS % 1.4 % (0-4.0); GRAN # 3.3 (1.4-6.5); GRAN % 57.3 % (42.2-75.2); HEMOGLOBIN 10.4 g/dl (12.5-16.0); LYMPH # 1.9 (1.2-3.4); LYMPH % 32.2 % (20.0-51.0); MEAN CELL VOLUME 94 fl (80.0-100.0); MEAN CORPUSCULAR HEMOGLOBIN 30 pg (27.0-31.0); MEAN CORPUSCULAR HGB CONC 32 g/dl (33.0-37.0); MEAN PLATELET VOLUME 11.4 fl (7.4-10.4); MONO # 0.5 (0.1-0.6); MONO % 8.7 % (1.7-9.3); PLATELET COUNT 142 K/mm3 (130-400); RED BLOOD COUNT 3.45 M/mm3 (4.10-5.30); REDCELL DISTRIBUTION WIDTH-CV 14.1 % (11.5-14.5)
[2019-07-21 15:14] LABS: HEMATOCRIT 32.4 % (37.0-47.0)
[2019-07-21 15:15] LABS: PROTHROMBIN TIME 12.1 SECONDS (9.7-12.8)
[2019-07-21 15:22] LABS: ALANINE AMINOTRANSFERASE 9 U/L (9-52); ALBUMIN 3.8 gm/dL (3.5-5.0); ALKALINE PHOSPHATASE 80 U/L (50-136); ANION GAP 7 mmol/L (7-16); AST,SGOT 21 U/L (15-37); BILIRUBIN,TOTAL 0.3 mg/dL (0.0-1.0); BLOOD UREA NITROGEN 17 mg/dL (7-17); C-REACTIVE PROTEIN 0.7 mg/dL (0.0-0.9); CALCIUM 8.9 mg/dL (8.4-10.2); CARBON DIOXIDE 25 mmol/L (22-30); CHLORIDE 106 mmol/L (98-107); CREATINE KINASE 64 U/L (30-135); CREATININE, serum 0.61 (0.52-1.25); GLUCOSE 105 mg/dL (74-106); LIPASE 42 U/L (23-300); SODIUM 138 mmol/L (137-145); TOTAL PROTEIN 6.9 gm/dL (6.4-8.2)
[2019-07-21 15:32] LABS: TROPONIN-I < 0.012 ng/mL (0.000-0.035)
[2019-07-21 15:35] LABS: PROLACTIN 11.2 ng/mL (3.0-18.6)
[2019-07-21 15:36] LABS: COLLECTION METHOD CLEAN CATCH
[2019-07-21 15:50] LABS: MUCOUS Present /lpf; PH 5 (5-8); URINE APPEARANCE Clear; URINE BACTERIA None Seen /hpf; URINE BILIRUBIN Negative (NEGATIVE); URINE BLOOD Negative (NEGATIVE); URINE COLOR Yellow; URINE GLUCOSE Negative (NEGATIVE); URINE KETONE Negative (NEGATIVE); URINE LEUKOCYTE ESTERASE Negative (NEGATIVE); URINE NITRATE Negative (NEGATIVE); URINE PROTEIN(semi-quant) Negative (NEGATIVE); URINE RBC 0-2 /hpf; URINE UROBILINOGEN Negative (NEGATIVE)
[2019-07-21 17:50] VITALS: BP 147/66; PULSE 61
== END 2019-07-21 18:00 | disposition home or self-care (01) ==
LOC: COL.ER 14:17
PROVIDERS: Emergency Medicine
DX: R53.1 Weakness (principal); I25.10 Atherosclerotic heart disease of native coronary artery without angina pectoris; E11.9 Type 2 diabetes mellitus without complications; I10 Essential (primary) hypertension; K21.9 Gastro-esophageal reflux disease without esophagitis; E78.5 Hyperlipidemia, unspecified; F32.9 Major depressive disorder, single episode, unspecified; Z86.69 Personal history of other diseases of the nervous system and sense organs; Z90.710 Acquired absence of both cervix and uterus; Z95.5 Presence of coronary angioplasty implant and graft; Z90.89 Acquired absence of other organs; Z79.51 Long term (current) use of inhaled steroids; Z79.02 Long term (current) use of antithrombotics/antiplatelets; Z79.82 Long term (current) use of aspirin
CPT/HCPCS: J7030

== ENCOUNTER → 2020-03-23 | Outpatient (CLI) | payer MEDICARE ==
[~2020-03-23] MED LIST changes: +CLOTRIM ANTIFUNGAL1% TP; +Desenex/Lotrimin AF TP; +LIPITOR 40MG TA40 MG PO; +ZANAFLEX CAPSULE2 MG PO
[2020-03-23 17:40] LABS: TROPONIN-I < 0.012 ng/mL (0.000-0.035)
[2020-03-25 05:06] LABS: FOLATE (FOLIC ACID) 14.5 ng/mL (>=4.0)
== END ==
LOC: ZCOL.LAB 15:52
PROVIDERS: Internal Medicine Interventional Cardiology
DX: R06.02 Shortness of breath (principal); E55.9 Vitamin D deficiency, unspecified; R53.83 Other fatigue; R68.89 Other general symptoms and signs

== ENCOUNTER 2020-04-30 11:45 | Day surgery (SDC) | payer MEDICARE ==
[~2020-04-30] VITALS: Ht 149.9 cm; Wt 71.2 kg
[2020-04-30] VITALS (11 sets, daily range): BP systolic 130–157; BP diastolic 51–67; PULSE 50–60; TEMP 36.5–36.7
[2020-04-30 12:26] LABS: HEMOGLOBIN 10.8 g/dl (12.5-16.0); MEAN CELL VOLUME 99 fl (80.0-100.0); MEAN CORPUSCULAR HEMOGLOBIN 32 pg (27.0-31.0); MEAN CORPUSCULAR HGB CONC 32 g/dl (33.0-37.0); MEAN PLATELET VOLUME 11.7 fl (7.4-10.4); PLATELET COUNT 131 K/mm3 (130-400); RED BLOOD COUNT 3.43 M/mm3 (4.10-5.30); REDCELL DISTRIBUTION WIDTH-CV 14.7 % (11.5-14.5)
[2020-04-30 12:34] LABS: CALCIUM 8.8 mg/dL (8.4-10.2); CREATININE, serum 0.64 (0.52-1.25); POTASSIUM 3.9 mmol/L (3.4-5.0)
[2020-04-30 12:39] LABS: INR 1.1 (0.8-3.0)
--- NOTE | 2020-04-30 14:18 | NUR ---
SEE MERGE DOCUMENTATION FOR MEDICATION ADMINISTRATION TIMES AND INTRA/POST PROCEDURE SEDATION ASSESSMENTS.
--- NOTE | 2020-04-30 18:46 | NUR ---
Patient DC to home via private vehicle @ 2933. Accompanied by daderrickter as mechanic driver. At time of DC patient A/O x4. denies c/o pain or discomfort. Right groin puncture site WNL. Printed DC instructions reviewed with patient. All questions and concerns addressed during review. Acknowledged understanding after review. Left unit in WC accompanied by this nurse.
== END 2020-04-30 18:45 | disposition home or self-care (01) ==
LOC: COL.CAR 11:45
PROVIDERS: Internal Medicine Interventional Cardiology
DX: I25.10 Atherosclerotic heart disease of native coronary artery without angina pectoris (principal); I50.9 Heart failure, unspecified; Z79.82 Long term (current) use of aspirin; Z79.02 Long term (current) use of antithrombotics/antiplatelets; Z95.1 Presence of aortocoronary bypass graft; Z88.8 Allergy status to other drugs, medicaments and biological substances
CPT/HCPCS: J1644; J2250; J3010; Q9967

== ENCOUNTER 2020-09-21 11:02 | Emergency (ER) | payer MEDICARE ==
[~2020-09-21 11:02] MED LIST changes: +CYMBALTA 20MG20 MG PO; +D3-5050000 IU PO; +EFFEXOR 3737.5 MG/TA PO; +EFFEXOR 75M75 MG/TAB PO; +LAMICTAL 100MG100 MG PO
[2020-09-21 11:29] LABS: BASO % 0.1 % (0.0-2.0); EOS # 0.1 (0.0-0.7); EOS % 1.2 % (0-4.0); GRAN # 4.5 (1.4-6.5); GRAN % 60.1 % (42.2-75.2); HEMOGLOBIN 11.6 g/dl (12.5-16.0); LYMPH # 2.4 (1.2-3.4); LYMPH % 31.3 % (20.0-51.0); MEAN CELL VOLUME 98 fl (80.0-100.0); MEAN CORPUSCULAR HEMOGLOBIN 31 pg (27.0-31.0); MEAN CORPUSCULAR HGB CONC 32 g/dl (33.0-37.0); MEAN PLATELET VOLUME 11.2 fl (7.4-10.4); MONO # 0.5 (0.1-0.6); MONO % 6.9 % (1.7-9.3); PLATELET COUNT 166 K/mm3 (130-400); REDCELL DISTRIBUTION WIDTH-CV 14.1 % (11.5-14.5)
[2020-09-21 11:30] LABS: HEMATOCRIT 36.3 % (37.0-47.0)
[2020-09-21 11:39] LABS: ALANINE AMINOTRANSFERASE 13 U/L (4-34); ALBUMIN 4.1 gm/dL (3.5-5.0); ALKALINE PHOSPHATASE 71 U/L (50-136); ANION GAP 7 mmol/L (7-16); AST,SGOT 22 U/L (15-37); BILIRUBIN,TOTAL 0.4 mg/dL (0.0-1.0); BLOOD UREA NITROGEN 14 mg/dL (7-17); C-REACTIVE PROTEIN < 0.5 mg/dL (0.0-0.9); CALCIUM 8.9 mg/dL (8.4-10.2); CARBON DIOXIDE 29 mmol/L (22-30); CHLORIDE 105 mmol/L (98-107); CREATININE, serum 0.73 (0.52-1.25); GLUCOSE 110 mg/dL (74-106); POTASSIUM 4.5 mmol/L (3.4-5.0); SODIUM 141 mmol/L (137-145)
[2020-09-21 11:53] LABS: PROLACTIN 14.9 ng/mL (3.0-18.6)
[2020-09-21 13:26] LABS: COLLECTION METHOD CLEAN CATCH
[2020-09-21 13:37] LABS: PH 7 (5-8); SQUAMOUS EPITHELIAL 0-2 /hpf; URINE APPEARANCE Hazy; URINE BACTERIA None Seen /hpf; URINE BILIRUBIN Negative (NEGATIVE); URINE BLOOD Negative (NEGATIVE); URINE COLOR Straw; URINE GLUCOSE Negative (NEGATIVE); URINE KETONE Negative (NEGATIVE); URINE LEUKOCYTE ESTERASE 1+ (NEGATIVE); URINE NITRATE Negative (NEGATIVE); URINE PROTEIN(semi-quant) Negative (NEGATIVE); URINE RBC 0-2 /hpf; URINE UROBILINOGEN Negative (NEGATIVE)
[2020-09-21] MEDS ORDERED: MACROBID 1100 MG/CAP PO (14:23)
[2020-09-21 15:23] VITALS: BP 146/67; PULSE 57
== END 2020-09-21 15:30 | disposition home or self-care (01) ==
LOC: COL.ER 11:02
PROVIDERS: Family Medicine
DX: R56.9 Unspecified convulsions (principal); Z95.1 Presence of aortocoronary bypass graft; Z86.73 Personal history of transient ischemic attack (TIA), and cerebral infarction without residual deficits; Z90.710 Acquired absence of both cervix and uterus; Z88.8 Allergy status to other drugs, medicaments and biological substances; Z79.02 Long term (current) use of antithrombotics/antiplatelets; Z79.82 Long term (current) use of aspirin

== ENCOUNTER 2021-02-28 16:54 | Inpatient (IN) | payer MEDICARE ==
[~2021-02-28] VITALS: Ht 149.9 cm; Wt 80.4 kg
[2021-02-28] VITALS (57 sets, daily range): BP systolic 104–152; BP diastolic 50–74; PULSE 60–62; TEMP 98.3–98.5; O2SAT 93–100
[2021-02-28 17:31] LABS: ARTERIAL BLD GAS O2 SATURATION 92.4 % (92-100); ARTERIAL BLD GAS TCO2 CT 28.3; ARTERIAL BLOOD GAS HCO3 26.5 meq/L (22-26); ARTERIAL BLOOD GAS PCO2 58.2 mmHg (35-45); ARTERIAL BLOOD GAS pH 7.28 (7.35-7.45)
[2021-02-28 18:12] LABS: BASO % 0.1 % (0.0-2.0); EOS % 0.5 % (0-4.0); GRAN % 76.6 % (42.2-75.2); HEMOGLOBIN 11.1 g/dl (12.5-16.0); LYMPH # 1.3 (1.2-3.4); LYMPH % 16.8 % (20.0-51.0); MEAN CELL VOLUME 102 fl (80.0-100.0); MEAN CORPUSCULAR HEMOGLOBIN 31 pg (27.0-31.0); MEAN CORPUSCULAR HGB CONC 31 g/dl (33.0-37.0); MEAN PLATELET VOLUME 11.3 fl (7.4-10.4); MONO # 0.4 (0.1-0.6); MONO % 5.6 % (1.7-9.3); PLATELET COUNT 149 K/mm3 (130-400); RED BLOOD COUNT 3.56 M/mm3 (4.10-5.30); REDCELL DISTRIBUTION WIDTH-CV 13.9 % (11.5-14.5)
[2021-02-28 18:13] LABS: HEMATOCRIT 36.3 % (37.0-47.0)
[2021-02-28 18:17] LABS: COLLECTION METHOD IN
[2021-02-28 18:23] LABS: MUCOUS Present /lpf; PH 6 (5-8); SQUAMOUS EPITHELIAL 0-2 /hpf; URINE APPEARANCE Hazy; URINE BACTERIA None Seen /hpf; URINE BILIRUBIN Negative (NEGATIVE); URINE BLOOD Negative (NEGATIVE); URINE COLOR Yellow; URINE GLUCOSE Negative (NEGATIVE); URINE KETONE Negative (NEGATIVE); URINE LEUKOCYTE ESTERASE Negative (NEGATIVE); URINE NITRATE Negative (NEGATIVE); URINE PROTEIN(semi-quant) 2+ (NEGATIVE); URINE RBC 0-2 /hpf; URINE UROBILINOGEN Negative (NEGATIVE)
[2021-02-28 18:24] LABS: ALANINE AMINOTRANSFERASE 16 U/L (4-34); ALBUMIN 3.9 gm/dL (3.5-5.0); ALKALINE PHOSPHATASE 64 U/L (50-136); ANION GAP 5 mmol/L (7-16); AST,SGOT 25 U/L (15-37); BILIRUBIN,TOTAL 0.3 mg/dL (0.0-1.0); BLOOD UREA NITROGEN 18 mg/dL (7-17); CALCIUM 8.9 mg/dL (8.4-10.2); CARBON DIOXIDE 26 mmol/L (22-30); CHLORIDE 106 mmol/L (98-107); GLUCOSE 126 mg/dL (74-106); POTASSIUM 4.9 mmol/L (3.4-5.0); SODIUM 137 mmol/L (137-145)
[2021-02-28 18:38] LABS: TRICYCLIC ANTIDEPRESS URINE POSITIVE
[2021-02-28 18:54] LABS: TROPONIN-I < 0.012 ng/mL (0.000-0.035)
[2021-02-28 19:08] LABS: C-REACTIVE PROTEIN < 0.5 mg/dL (0.0-0.9)
[2021-02-28 19:27] LABS: ACETAMINOPHEN < 10 ug/mL (10-30); ALCOHOL(ethanol),MEDICAL < 10 mg/dL; SALICYLATE < 1.0 mg/dL
--- NOTE | 2021-02-28 21:50 | NUR ---
Patient arrived from ED at ICU 4 at this time. Daughter, Tia at bedside. Patient drowsy able to be aroused, answering yes/no questions. Patient 98% on 5 liters of oxygen via nasal cannula. Assessment complete and charted. Call light in reach. Daughter updated regarding plan of care.
[2021-02-28 22:21] LABS: ARTERIAL BLD GAS O2 SATURATION 94.7 % (92-100); ARTERIAL BLD GAS TCO2 CT 27.5; ARTERIAL BLOOD GAS BASE EXCESS -2.4 (-2-2); ARTERIAL BLOOD GAS HCO3 25.6 meq/L (22-26); ARTERIAL BLOOD GAS PCO2 59.9 mmHg (35-45); ARTERIAL BLOOD GAS PO2 85.2 mmHg (80-100); ARTERIAL BLOOD GAS pH 7.25 (7.35-7.45)
--- NOTE | 2021-02-28 22:50 | NUR ---
Patient edematous on initial assessment. Daughter reporting patient swelling has gradually increased throughout evening. Patient leos has appropriate output. Mary Alice ALBRECHT updated. Decrease fluids to 60ml/hr. Also obtained order for desenex powder for excoriation under breast and pannus.
[2021-02-28] MEDS ORDERED: TYLENOL 325MG325 MG PO (22:51)
[2021-02-28] MEDS ORDERED: COMBIRESP IH (22:52)
[2021-02-28] MEDS ORDERED: QUESTRAN4 GM/9 GM PO (22:53)
[2021-02-28] MEDS ORDERED: OMEGA-3 1000 MG1 CAP PO (22:57)
[2021-02-28] MEDS ORDERED: LAMICTAL 100MG100 MG PO (23:00)
[2021-02-28] MEDS ORDERED: PROTONIX20 MG PO (23:02)
[2021-02-28] MEDS ORDERED: B-121000 MCG PO (23:05)
[2021-02-28] MEDS ORDERED: ERGOCALCIFER50000 IU PO (23:06)
--- NOTE | 2021-02-28 23:27 | NUR ---
Patient more alert. Risk And Compliance Analytics Director strength unequal. Left leg/arm drift more than right. Patient voiced concern with hand tremors. Updated Mary Alice ALBRECHT continue to monitor MRI in AM.
[2021-03-01] VITALS (750 sets, daily range): BP systolic 104–149; BP diastolic 44–61; PULSE 59–64; TEMP 98–99; O2SAT 90–100
[2021-03-01 06:02] LABS: ARTERIAL BLD GAS O2 SATURATION 95.9 % (92-100); ARTERIAL BLD GAS TCO2 CT 25.6; ARTERIAL BLOOD GAS HCO3 24.2 meq/L (22-26); ARTERIAL BLOOD GAS PCO2 42.7 mmHg (35-45); ARTERIAL BLOOD GAS PO2 85.7 mmHg (80-100); ARTERIAL BLOOD GAS pH 7.37 (7.35-7.45)
--- NOTE | 2021-03-01 06:09 | NUR ---
Patient more alert this AM. Improved shipping receiving manager strength/neuro check. Patient requesting daughter brings glasses. Daughter called and updated. Patient currently off bipap on 5 liters nasal cannula at 99%. Denies other needs .Call light in reach.
[2021-03-01 06:24] LABS: EOS % 0.4 % (0-4.0); GRAN # 3.2 (1.4-6.5); GRAN % 56.7 % (42.2-75.2); LYMPH # 1.9 (1.2-3.4); LYMPH % 33.6 % (20.0-51.0); MEAN CELL VOLUME 100 fl (80.0-100.0); MEAN CORPUSCULAR HGB CONC 30 g/dl (33.0-37.0); MEAN PLATELET VOLUME 10.8 fl (7.4-10.4); MONO # 0.5 (0.1-0.6); MONO % 9.1 % (1.7-9.3); PLATELET COUNT 146 K/mm3 (130-400); RED BLOOD COUNT 3.11 M/mm3 (4.10-5.30)
[2021-03-01 06:26] LABS: HEMOGLOBIN 9.4 g/dl (12.5-16.0); MEAN CORPUSCULAR HEMOGLOBIN 30 pg (27.0-31.0)
[2021-03-01 06:52] LABS: CALCIUM 8.3 mg/dL (8.4-10.2); CREATININE, serum 0.7 (0.52-1.25); POTASSIUM 4.5 mmol/L (3.4-5.0)
--- NOTE | 2021-03-01 07:00 | NUR ---
PT RESTING IN BED. VSS. PT IS AXOX4. PT HAS LEFT FACIAL DROOP AND LEFT SIDED WEAKNESS. WILL CONTINUE TO [facility].
--- NOTE | 2021-03-01 07:22 | NUR ---
Report given to DEMETRIS Faust
--- NOTE | 2021-03-01 09:58 | NUR ---
CRISTOBAL met with the patient to discuss discharge plan. The patient lives in [place] with her daughter, Erma (ph#[phone]). She reports independence with ADLs and has a cane, walker, and wheelchair. She states that her daughter supervises her when she bathes. The patient's PCP is Dr. Jena Patel and she receives her medications from [facility]. She reports no difficulties obtaining her meds. The patient does not have a DPOA-HC in EMR, but she states that she does have one completed and that it designates her friend, Ayesha "Cuco" Daniela (ph#[phone]). CRISTOBAL contacted Dr. Patel's office to inquire if they have her DPOA-HC on file. Kezia, at Dr. Patel's office, reports that they do not. CRISTOBAL contacted Pilarosmani and she reports that she does have a copy of the document and is on her way up to the hospital now with it. The patient plans to return home upon discharge. CRISTOBAL to ask for PT/OT to be ordered. CRISTOBAL to continue to follow. *Discharge plan: unknown at this time, awaiting recs.
--- NOTE | 2021-03-01 10:36 | NUR ---
Cuco arrived at the hospital and provided CRISTOBAL with a copy of the patient's DPOA-HC and Living Will. SW placed the documents on the patient's chart. The patient's DPOA-HC is Cuco.
--- NOTE | 2021-03-01 11:33 | NUR ---
pt was not in room at this time
--- NOTE | 2021-03-01 15:02 | NUR ---
PT is recommending inpatient rehab. CRISTOBAL met with the patient and her daughter, Jasmin, to discuss their recommendation. The patient reports that she would just prefer to return home and do outpatient therapy. She reports that she will think about this overnight though. CRISTOBAL contacted and updated the patient's DPOA-HC Cuco. Cuco states that the patient will probably be very resistant to inpatient rehab/post-acute rehab, but to have the doctor encourage her. SW to inform the hospitalist.
--- NOTE | 2021-03-01 21:20 | NUR ---
Assessment complete and charted. Patient resting in bed, alert and orienated. Patient current on 1 liter of oxygen. Denies pain. Denies needs at this time. IV to left wrist and right forearm painful/infiltrated when flushed. Restarted in left forearm. Call light in reach.
[2021-03-02] VITALS (327 sets, daily range): BP systolic 133–162; BP diastolic 47–75; PULSE 57–64; TEMP 97.7–98.8; O2SAT 89–99
--- NOTE | 2021-03-02 00:30 | NUR ---
Patient resting in bed. Denies needs at this time. Alert and orientated. Hand safety person equal. Minimal left facial droop noted. No change from previous assessment. Call light in reach.
[2021-03-02 05:40] LABS: BASO % 0.3 % (0.0-2.0); EOS # 0.1 (0.0-0.7); EOS % 1.4 % (0-4.0); GRAN # 3.5 (1.4-6.5); GRAN % 54.4 % (42.2-75.2); HEMATOCRIT 31.4 % (37.0-47.0); HEMOGLOBIN 9.9 g/dl (12.5-16.0); LYMPH # 2.3 (1.2-3.4); LYMPH % 36.1 % (20.0-51.0); MEAN CELL VOLUME 97 fl (80.0-100.0); MEAN CORPUSCULAR HEMOGLOBIN 30 pg (27.0-31.0); MEAN CORPUSCULAR HGB CONC 32 g/dl (33.0-37.0); MEAN PLATELET VOLUME 10.9 fl (7.4-10.4); MONO # 0.5 (0.1-0.6); MONO % 7.6 % (1.7-9.3); PLATELET COUNT 142 K/mm3 (130-400); RED BLOOD COUNT 3.25 M/mm3 (4.10-5.30); REDCELL DISTRIBUTION WIDTH-CV 13.9 % (11.5-14.5)
--- NOTE | 2021-03-02 05:47 | NUR ---
Patient given bed bath and linen change this AM. Otherwise uneventful night. Patient remains on 1 liter via nasal cannula. Oxygen saturations 90-95%. Denies needs this Am. Call light in reach.
[2021-03-02 05:55] LABS: CALCIUM 8.6 mg/dL (8.4-10.2); CREATININE, serum 0.67 (0.52-1.25)
--- NOTE | 2021-03-02 07:22 | NUR ---
Report given to DEMETRIS Clark
--- NOTE | 2021-03-02 10:13 | NUR ---
SW attended clinical rounds. The patient is to transfer up to the medical/surgical floor today. The hospitalist discussed therapy's recommendation for IPR and encouraged rehab. The patient was agreeable IPR. SW then followed up with the patient about post-acute rehab. The patient is agreeable to IPR and would prefer to go to IPR. SW discussed having a second preference as a back up option and informed her of the different facilities. The patient chose [facility] as her second preference. SW consulted IPR Director, Tricia. SW contacted and faxed a referral to [facility]. Awaiting screens. SW contacted and updated the patient's DPOA-HC, Cuco. Cuco is supportive of the patient's decision and is hopeful that the patient can go to IPR. Discharge plan: post-acute rehab, Awaiting screens and insurance auth*
--- NOTE | 2021-03-02 14:30 | NUR ---
Pt arrives to medical unit rm 351 from ICU via WC, A&O x 4, denies pain or needs at this time. POC reviewed with pt. Call light in reach.
--- NOTE | 2021-03-02 18:45 | NUR ---
Pt resting in bed visiting with daughter, denies c/o or needs at this time. Report with DEMETRIS Gaspar. Call light in reach.
[2021-03-03 04:05] VITALS: BP 136/48; PULSE 56; TEMP 98
--- NOTE | 2021-03-03 05:24 | NUR ---
PATIENT RESTED QUIETLY IN BED THROUGHOUT THE NIGHT. NO NEW ISSUES NOTED OR REPORTED BY PATIENT.
--- NOTE | 2021-03-03 06:40 | NUR ---
PT IS LAYING IN BED AT THIS TIME. RT IS AT BEDSIDE, PT IS SATURATING 89% ON RA, RT PLACED PT ON 1L O2 VIA NC. PT DENIES THE NEED FOR ANYTHING AT THIS TIME.
[2021-03-03 06:46] LABS: BASO % 0.3 % (0.0-2.0); EOS # 0.1 (0.0-0.7); EOS % 1.4 % (0-4.0); GRAN # 3.1 (1.4-6.5); GRAN % 53.3 % (42.2-75.2); HEMOGLOBIN 10.9 g/dl (12.5-16.0); LYMPH # 2.1 (1.2-3.4); LYMPH % 36.1 % (20.0-51.0); MEAN CELL VOLUME 96 fl (80.0-100.0); MEAN CORPUSCULAR HEMOGLOBIN 31 pg (27.0-31.0); MEAN CORPUSCULAR HGB CONC 32 g/dl (33.0-37.0); MEAN PLATELET VOLUME 11.4 fl (7.4-10.4); MONO # 0.5 (0.1-0.6); MONO % 8.6 % (1.7-9.3); PLATELET COUNT 161 K/mm3 (130-400); RED BLOOD COUNT 3.55 M/mm3 (4.10-5.30); REDCELL DISTRIBUTION WIDTH-CV 14.1 % (11.5-14.5)
[2021-03-03 07:00] LABS: CALCIUM 9.2 mg/dL (8.4-10.2); CREATININE, serum 0.69 (0.52-1.25); POTASSIUM 4.1 mmol/L (3.4-5.0)
--- NOTE | 2021-03-03 07:13 | NUR ---
RA SPO2 88% PLACED ON 1 LPM NC 93%. RN BESIDE
[2021-03-03 07:45] VITALS: BP 157/60; PULSE 66; TEMP 98.5
[2021-03-03 12:27] VITALS: BP 138/48; PULSE 62; TEMP 98.2
--- NOTE | 2021-03-03 15:57 | NUR ---
Fire Management Officer attended clinical rounds with the team. IPR screen is still pending as CLAUDINE Clarke Director is awaiting insurance authorization.
[2021-03-03 16:36] VITALS: BP 131/48; PULSE 55; TEMP 98.2
--- NOTE | 2021-03-03 19:21 | NUR ---
Patient has had an uneventful day. She has had no complaints of pain. She did walk with PT and did very well. She is currently comtemplating placement with IPR. Bedside report has been completed with Chasity Gomes RN.
[2021-03-03 19:46] VITALS: BP 137/40; PULSE 64; TEMP 98.3
[2021-03-03 23:36] VITALS: BP 148/48; PULSE 60; TEMP 98
[2021-03-04 04:32] VITALS: BP 132/46; PULSE 59; TEMP 98.3
--- NOTE | 2021-03-04 06:13 | NUR ---
NO NEW ISSUES NOTED OR REPORTED BY PATIENT. PATIENT RESTED QUIETLY IN BED THROUGHOUT THE NIGHT AFTER TAKING A LONG SHOWER.
--- NOTE | 2021-03-04 07:09 | NUR ---
Patient was awake and watching television in bed. Patient had no complaints during bedside shift report.
[2021-03-04 08:09] VITALS: BP 127/52; PULSE 62; TEMP 98
[2021-03-04 12:04] VITALS: BP 126/82; PULSE 66; TEMP 98.1
--- NOTE | 2021-03-04 13:26 | NUR ---
Patient did not require oxygen will walking down sainz. Patient was able to walk up and down sainz twice and SPO2 remained 91-96% during acitivty.
--- NOTE | 2021-03-04 14:15 | NUR ---
Cocktail Lounge Manager collaborated with Tricia [facility] Director who advised patient was able to shower last night and was mostly independent. Patient also walked 400 ft without a walker and was doing better functionally. OT saw patient this morning and changed their recommendation to home. SW attended clinical rounds and patient wants to return home with outpatient therapy. Patient does not want to go to [facility] anymore. CRISTOBAL met with patient and discussed home health vs outpatient. Patient declined home health and wants outpatient PT/OT set up at [facility] on [address]. CRISTOBAL contacted patient's daughter, Jasmin who is in agreement with plan and states she can take patient to her follow up appointments. CRISTOBAL also updated patient's DPOA-HC, Cuco on change in discharge plan. Cuco advised that patient typically will decline home health as she does not want people in the home. CRISTOBAL contacted [facility] on [address] and scheduled patient's first appointment for 03/16/21. PT is at 1300 and OT is at 1400. CRISTOBAL provided appointments to community specialist who included them in patient's discharge paperwork. SW reviewed patient's exercise oximetry and patient kevin not qualify for home oxygen. Discharge Plan: Home with outpatient PT/OT.
[2021-03-04 15:39] VITALS: BP 128/62; PULSE 62; TEMP 98.2
--- NOTE | 2021-03-04 19:13 | NUR ---
PT HAS NOW BEEN DISCHARGED, THE PATIENT HAS BEEN ESCORTED OUT WITH DAUGHTER AND [facility]IA [facility] STAFF. NO FURTHER CONCERNS.
== END 2021-03-04 19:14 | disposition home or self-care (01) | DRG 100 ==
LOC: COL.ER 16:54 → ICU 19:35 → MEDICAL 19:35
PROVIDERS: Emergency Medicine; Hospitalist; Student in an Organized Health Care Education/Training Program; ADMIT Student in an Organized Health Care Education/Training Program
DX: R56.9 Unspecified convulsions (principal); G92 Toxic encephalopathy; J96.01 Acute respiratory failure with hypoxia; J96.02 Acute respiratory failure with hypercapnia; G45.9 Transient cerebral ischemic attack, unspecified; I69.351 Hemiplegia and hemiparesis following cerebral infarction affecting right dominant side; I50.32 Chronic diastolic (congestive) heart failure; G72.81 Critical illness myopathy; T50.915A Adverse effect of multiple unspecified drugs, medicaments and biological substances, initial encounter; I44.0 Atrioventricular block, first degree; M54.81 Occipital neuralgia; D53.9 Nutritional anemia, unspecified; I11.0 Hypertensive heart disease with heart failure; E78.5 Hyperlipidemia, unspecified; K21.9 Gastro-esophageal reflux disease without esophagitis; F32.9 Major depressive disorder, single episode, unspecified; F41.9 Anxiety disorder, unspecified; I25.2 Old myocardial infarction; F03.90 Unspecified dementia, unspecified severity, without behavioral disturbance, psychotic disturbance, mood disturbance, and anxiety; G47.33 Obstructive sleep apnea (adult) (pediatric); R51.9 Headache, unspecified; R42 Dizziness and giddiness; I25.10 Atherosclerotic heart disease of native coronary artery without angina pectoris; E11.9 Type 2 diabetes mellitus without complications; Z20.822 Contact with and (suspected) exposure to COVID-19; Z95.1 Presence of aortocoronary bypass graft; Z95.5 Presence of coronary angioplasty implant and graft; Z90.710 Acquired absence of both cervix and uterus; Z79.02 Long term (current) use of antithrombotics/antiplatelets; Z79.82 Long term (current) use of aspirin; Z87.891 Personal history of nicotine dependence; Z88.8 Allergy status to other drugs, medicaments and biological substances
CPT/HCPCS: 99223-AI; 99232-AI; 99239; A9585; J1650; J1953; J2310; J7030; Q9967

== ENCOUNTER 2021-03-10 11:32 | Emergency (ER) | payer MEDICARE ==
[~2021-03-10 11:32] MED LIST changes: +B-121000 MCG PO; +ERGOCALCIFER50000 IU PO; +OMEGA-3 1000 MG1 CAP PO; +PROTONIX20 MG PO; +QUESTRAN4 GM/9 GM PO; +TYLENOL 325MG325 MG PO
[2021-03-10 11:38] VITALS: TEMP 98.2
[2021-03-10 12:12] LABS: BASO % 0.3 % (0.0-2.0); EOS # 0.1 (0.0-0.7); EOS % 1.7 % (0-4.0); GRAN # 2.7 (1.4-6.5); GRAN % 46.4 % (42.2-75.2); HEMOGLOBIN 11.1 g/dl (12.5-16.0); LYMPH # 2.5 (1.2-3.4); MEAN CELL VOLUME 98 fl (80.0-100.0); MEAN CORPUSCULAR HEMOGLOBIN 32 pg (27.0-31.0); MEAN CORPUSCULAR HGB CONC 32 g/dl (33.0-37.0); MEAN PLATELET VOLUME 10.7 fl (7.4-10.4); MONO # 0.6 (0.1-0.6); MONO % 9.4 % (1.7-9.3); PLATELET COUNT 189 K/mm3 (130-400); RED BLOOD COUNT 3.52 M/mm3 (4.10-5.30); REDCELL DISTRIBUTION WIDTH-CV 13.8 % (11.5-14.5)
[2021-03-10 12:16] LABS: HEMATOCRIT 34.4 % (37.0-47.0)
[2021-03-10 12:16] LABS: ALANINE AMINOTRANSFERASE 16 U/L (4-34); ALBUMIN 3.9 gm/dL (3.5-5.0); ALKALINE PHOSPHATASE 69 U/L (50-136); ANION GAP 6 mmol/L (7-16); AST,SGOT 20 U/L (15-37); BILIRUBIN,TOTAL 0.1 mg/dL (0.0-1.0); BLOOD UREA NITROGEN 15 mg/dL (7-17); CARBON DIOXIDE 28 mmol/L (22-30); CHLORIDE 105 mmol/L (98-107); CREATININE, serum 0.76 (0.52-1.25); GLUCOSE 108 mg/dL (74-106); SODIUM 139 mmol/L (137-145)
[2021-03-10 12:29] LABS: TROPONIN-I < 0.012 ng/mL (0.000-0.035)
[2021-03-10 13:07] VITALS: BP 115/54; PULSE 67
== END 2021-03-10 13:10 | disposition home or self-care (01) ==
LOC: COL.ER 11:32
PROVIDERS: Emergency Medicine
DX: R07.9 Chest pain, unspecified (principal); R60.0 Localized edema; I25.2 Old myocardial infarction; Z86.73 Personal history of transient ischemic attack (TIA), and cerebral infarction without residual deficits; Z95.1 Presence of aortocoronary bypass graft; Z95.5 Presence of coronary angioplasty implant and graft; Z88.8 Allergy status to other drugs, medicaments and biological substances; Z79.82 Long term (current) use of aspirin; Z79.02 Long term (current) use of antithrombotics/antiplatelets; Z79.51 Long term (current) use of inhaled steroids

== ENCOUNTER 2021-03-16 13:14 | Outpatient (RCR) | payer MEDICARE | END 2021-03-17 15:59 | disposition home or self-care (01) | LOC: WSPT 13:14 | DX: R41.82 Altered mental status, unspecified (principal) ==

== ENCOUNTER → 2022-02-15 | Outpatient (CLI) | payer MEDICARE | LOC: COL.RAD 12:10 | DX: M48.02 Spinal stenosis, cervical region (principal); G44.86 Cervicogenic headache ==

== ENCOUNTER 2022-06-16 09:52 | Observation (INO) | payer MEDICARE ==
[~2022-06-16] VITALS: Ht 149.9 cm; Wt 73.4 kg
[2022-06-16 00:34] VITALS: BP 128/49; PULSE 56; TEMP 97.6
[2022-06-16 10:24] LABS: BASO % 0.3 % (0.0-2.0); EOS # 0.1 K/mm3 (0.0-0.7); EOS % 1.8 % (0.0-4.0); GRAN # 2.9 K/mm3 (1.4-6.5); GRAN % 46.6 % (42.2-75.2); HEMATOCRIT 38.3 % (37.0-47.0); HEMOGLOBIN 11.9 g/dl (12.5-16.0); LYMPH # 2.7 K/mm3 (1.2-3.4); LYMPH % 43.7 % (20.0-51.0); MEAN CELL VOLUME 98 fl (80.0-100.0); MEAN CORPUSCULAR HEMOGLOBIN 30 pg (27-31); MEAN CORPUSCULAR HGB CONC 31 g/dl (33.0-37.0); MONO # 0.5 K/mm3 (0.1-0.6); MONO % 7.3 % (1.7-9.3); PLATELET COUNT 160 K/mm3 (130-400); RED BLOOD COUNT 3.91 M/mm3 (4.10-5.30); REDCELL DISTRIBUTION WIDTH-CV 14.6 % (11.5-14.5)
[2022-06-16 10:43] LABS: ALBUMIN 3.4 gm/dL (3.4-4.8); BILIRUBIN,TOTAL 0.4 mg/dL (0.2-1.2); CALCIUM 9.2 mg/dL (8.4-10.2); CREATININE, serum 0.77 mg/dL (0.57-1.11); POTASSIUM 4.6 mmol/L (3.5-4.5); TOTAL PROTEIN 7.2 gm/dL (6.2-8.1)
[2022-06-16 10:45] LABS: ARTERIAL BLD GAS O2 SATURATION 93.6 % (92-100); ARTERIAL BLD GAS TCO2 CT 24.3; ARTERIAL BLOOD GAS BASE EXCESS -0.5 (-2-2); ARTERIAL BLOOD GAS HCO3 23.2 meq/L (22-26); ARTERIAL BLOOD GAS PCO2 35.1 mmHg (35-45); ARTERIAL BLOOD GAS PO2 68.6 mmHg (80-100); ARTERIAL BLOOD GAS pH 7.44 (7.35-7.45)
[2022-06-16 10:51] LABS: TROPONIN-I 0.01 ng/mL (0.00-0.033)
[2022-06-16 14:42] VITALS: BP 165/53; PULSE 54; TEMP 97.7
[2022-06-16 15:00] VITALS: BP 160/53; PULSE 56; TEMP 98.7
--- NOTE | 2022-06-16 15:41 | NUR ---
PT ADMITTED FROM THE ER, ORIENT AND ALERT X4, VSS, ON O2 2 LTS VIA N.C. DENIES ANY COMPLAINTS OF PAIN, PT HAS RIGHT LOWER LIMP EDEMA +1,ON TELE. DOES NOT REMEMBER THE HER MEDS , DAUGHTER CALLED OVER THE PHONE TO BRING MEDICATION LIST RN WAS ALSO AMBLE TO GO THROUGH PT MEDS ON PHONE WITH THE DAUGHTER.NO SKIN ISSUES NOTED.AMBULATORY WITH A RIVERA WHILE AT HOME BUT STATES MOSTLY INDEPENDENT.
--- NOTE | 2022-06-16 18:27 | NUR ---
PT CONTINUES TO COMPLAINTS OF MILD CHEST PAIN RATES IT AT 1/10 , PAIN MEDICATION OFFERED BUT REFUSED.
[2022-06-16 19:00] VITALS: BP 125/47; PULSE 58; TEMP 98.8
--- NOTE | 2022-06-16 20:30 | NUR ---
Initial shift assessment done- states o2 at 1L/nc- states respiratory therapy decreased from 2L to 1L/nc, sats were 100% on the 2L/nc,,states she feels fine-daughter in room-visiting,will be heading home now,, Tele on, b/p stable at 125/47. Will give a snack tonight- no other requests at this time
[2022-06-16 23:00] VITALS: BP 128/49; PULSE 56; TEMP 97.6
[2022-06-17 03:44] VITALS: BP 138/44; PULSE 58; TEMP 98.4
[2022-06-17 05:52] LABS: CALCIUM 9.1 mg/dL (8.4-10.2); CREATININE, serum 0.67 mg/dL (0.57-1.11); POTASSIUM 4.1 mmol/L (3.5-4.5)
--- NOTE | 2022-06-17 06:30 | NUR ---
Had a fair night of sleep- VSS, B/P good all night, o2 sats 96% on the 1L/nc of o2,, pt denies any chest pain/or dizziness/or SOB, did put some triple antibiotic cream on abrasion to right elbow area- covered with light gauze.
[2022-06-17 08:00] VITALS: BP 141/37; PULSE 47; TEMP 97.7
[2022-06-17] MEDS ORDERED: PRINIVIL40 MG PO (09:35)
[2022-06-17] MEDS ORDERED: LASIX 20MG TABL20 MG PO (09:38)
--- NOTE | 2022-06-17 10:17 | NUR ---
PT ALERT AND ORIENT X4, DENIES ANY CHEST PAIN THIS MORNING. PT HAS ALREADY ORDERED BREAKFAST.
[2022-06-17 11:00] VITALS: BP 112/44; PULSE 56; TEMP 98.7
--- NOTE | 2022-06-17 11:01 | NUR ---
SW met with patient to complete intake. Patient states that she lives in [facility]. POA/Guardian is Ayesha Suarez [phone]. Patient states that she does not utilize DME, is independent with ADL's and does not utilize HH services at this time. PCP is Dr. Clark and pharmacy is [facility]. Patient states her plan is to return to her home upon DC. SW will continue to follow. DC plan: Home
[2022-06-17 11:58] VITALS: BP 109/49; PULSE 59; TEMP 98.6
--- NOTE | 2022-06-17 17:10 | NUR ---
pt had a calm day, vss, alert and orient x4, all due meds given today, no adverse reaction and events documented. pt dischaarged from the unit, iv removed, tip intact, tele removed. pt discharge summary given, dc instruction provided verbalize understanding. pt escorted out by unit tech in a wheel chair,accompanied home by a relative.
== END 2022-06-17 17:00 | disposition home or self-care (01) ==
LOC: COL.ER 09:52 → MEDICAL 13:06
PROVIDERS: Emergency Medicine; ADMIT Internal Medicine
DX: J96.01 Acute respiratory failure with hypoxia (principal); I16.0 Hypertensive urgency; I25.10 Atherosclerotic heart disease of native coronary artery without angina pectoris
CPT/HCPCS: G0378; J1940

== ENCOUNTER 2022-08-25 12:48 | Day surgery (SDC) | payer MEDICARE ==
[2022-08-25] VITALS (9 sets, daily range): BP systolic 138–177; BP diastolic 54–75; PULSE 54–62; TEMP 98.2
[~2022-08-25] VITALS: Ht 149.9 cm; Wt 73.0 kg
[~2022-08-25 12:48] MED LIST changes: +PRINIVIL40 MG PO
[2022-08-25 13:36] LABS: HEMOGLOBIN 10.8 g/dl (12.5-16.0); MEAN CELL VOLUME 96 fl (80.0-100.0); MEAN CORPUSCULAR HEMOGLOBIN 31 pg (27-31); MEAN CORPUSCULAR HGB CONC 33 g/dl (33.0-37.0); MEAN PLATELET VOLUME 10.6 fl (7.4-10.4); PLATELET COUNT 197 K/mm3 (130-400); RED BLOOD COUNT 3.45 M/mm3 (4.10-5.30); REDCELL DISTRIBUTION WIDTH-CV 14.7 % (11.5-14.5)
[2022-08-25 13:37] LABS: HEMATOCRIT 33.1 % (37.0-47.0)
[2022-08-25 13:42] LABS: PROTHROMBIN TIME 11.7 SECONDS (9.7-12.8)
[2022-08-25 13:45] LABS: PARTIAL THROMBOPLASTIN TIME 36.5 SECONDS (26.0-37.0)
[2022-08-25 13:51] LABS: CREATININE, serum 0.71 mg/dL (0.57-1.11); POTASSIUM 4.1 mmol/L (3.5-4.5)
[2022-08-25] MEDS ORDERED: MASON NATURAL2000 IU PO (14:03)
[2022-08-25] MEDS ORDERED: ZESTRIL40 MG PO (14:03)
--- NOTE | 2022-08-25 14:37 | NUR ---
SEE MERGE FOR ALL MEDICATION ADMINISTRATION, VITAL SIGNS AND INTERVENTIONS.
--- NOTE | 2022-08-25 15:30 | NUR ---
PT RETURNED VIA BED FROM LOG BUYER, SLEEPY, BUT EYES OPEN. DAUGHTER WITH PT. CALL LIGHT IN REACH, REVIEWED BEDREST WITH PT. TAKES SIPS OF WATER WITH STRAW. HAS NO C/O PAIN OR SOB.
--- NOTE | 2022-08-25 16:00 | NUR ---
PT HAS SCANT AMT OF DRAINAGE TO UPPER 2X2 UNDER FOLD OF ABD. AREA MARKED. PT CON'T TO DOSE ON BEDREST, NO OTHER CHANGES
--- NOTE | 2022-08-25 17:15 | NUR ---
HOB SLIGHTLY ELEVATED, PT CON'T TO DECLINE FOOD, TOOK ONLY WATER. REVIEWED DISCHARGE INST. WITH PT AND DAUGHTER. REVIEWED CARE OF SITE, ACTIVITY AND FOLLOWUP. ALSO REVIEWED IF BLEEDING OCCURS AND NO CHANGE IN MEDICATION. 2X2 DRESSING AND TEGRADERM CHANGED DUE TO SCAN AMT OF BLOOD ON DRESSING. SITE IS CLEAN, NO OOZING OR SWELLING NOTED. PT WALKED TO B/R AT 1730, TOLERATED WELL, SITE UNCHANGED
--- NOTE | 2022-08-25 17:45 | NUR ---
IV D'CD INTACT. PT DRESSED, DISCHARGED VIA W/C TO CAR WITH DAUGHTER AT 1800
== END 2022-08-25 18:00 | disposition home or self-care (01) ==
LOC: COL.CAR 12:48
PROVIDERS: Internal Medicine Interventional Cardiology
DX: Q24.5 Malformation of coronary vessels (principal); I25.10 Atherosclerotic heart disease of native coronary artery without angina pectoris; I10 Essential (primary) hypertension; I70.213 Atherosclerosis of native arteries of extremities with intermittent claudication, bilateral legs; Z95.818 Presence of other cardiac implants and grafts; Z95.5 Presence of coronary angioplasty implant and graft
CPT/HCPCS: J1644; J2250; J3010; Q9967

== ENCOUNTER 2024-02-29 22:11 | Inpatient (IN) | payer MEDICARE ==
[~2024-02-29] VITALS: Ht 147.3 cm; Wt 72.8 kg
[~2024-02-29 22:11] MED LIST changes: +MASON NATURAL2000 IU PO; +ZESTRIL40 MG PO
[2024-03-01] VITALS (10 sets, daily range): BP systolic 90–140; BP diastolic 50–77; PULSE 66–74; TEMP 97.6–99.2
[2024-03-01] MEDS ORDERED: Morphine 4 MG/ML VIAL IV ONE (00:15)
[2024-03-01] MEDS ORDERED: Ondansetron 4 MG/2 ML VIAL IV ONE (00:15)
[2024-03-01 00:53] LABS: BASO % 0.2 % (0.0-2.0); EOS % 0.5 % (0.0-4.0); GRAN # 5.9 K/mm3 (1.4-6.5); GRAN % 72.1 % (42.2-75.2); HEMATOCRIT 41.2 % (37.0-47.0); LYMPH # 1.6 K/mm3 (1.2-3.4); LYMPH % 19.9 % (20.0-51.0); MEAN CELL VOLUME 98 fl (80.0-100.0); MEAN CORPUSCULAR HEMOGLOBIN 31 pg (27-31); MEAN CORPUSCULAR HGB CONC 32 g/dl (33.0-37.0); MEAN PLATELET VOLUME 10.9 fl (7.4-10.4); MONO # 0.6 K/mm3 (0.1-0.6); MONO % 7.1 % (1.7-9.3); PLATELET COUNT 190 K/mm3 (130-400); RED BLOOD COUNT 4.21 M/mm3 (4.10-5.30); REDCELL DISTRIBUTION WIDTH-CV 14.6 % (11.5-14.5)
[2024-03-01 01:00] LABS: ALANINE AMINOTRANSFERASE 7 U/L (0-55); ALBUMIN 3.6 g/dL (3.4-4.8); ALKALINE PHOSPHATASE 62 U/L (40-150); ANION GAP 12 mmol/L (7-16); AST,SGOT 14 U/L (5-34); BILIRUBIN,TOTAL 0.5 mg/dL (0.2-1.2); BLOOD UREA NITROGEN 20 mg/dL (10-20); CALCIUM 9.6 mg/dL (8.4-10.2); CHLORIDE 106 mEq/L (98-107); CREATININE, serum 1.11 mg/dL (0.57-1.11); GLUCOSE 133 mg/dL (70-99); POTASSIUM 3.8 mEq/L (3.5-4.5); SODIUM 140 mEq/L (136-145); TOTAL PROTEIN 7.3 g/dl (6.2-8.1)
[2024-03-01 01:06] LABS: LIPASE < 7 U/L (8-78)
[2024-03-01] MEDS ORDERED: Iohexol 300 - 100 ML VIAL IV ONE (01:33)
[2024-03-01] MEDS ORDERED: NS 60 ML IV ONE (01:34)
[2024-03-01] MEDS ORDERED: TESSALON P100 MG/CAP PO (03:12)
[2024-03-01] MEDS ORDERED: AMITRIPTYLINE H10 M1 PO (03:12)
[2024-03-01] MEDS ORDERED: OYSTER SHELL CA1 TA6 PO (03:16)
[2024-03-01] MEDS ORDERED: UBRELVY50 MG PO (03:19)
[2024-03-01] MEDS ORDERED: VITAMIN B12 1541 TAB PO (03:20)
[2024-03-01] MEDS ORDERED: VITAMIN C500 MG PO (03:20)
--- NOTE | 2024-03-01 04:30 | NUR ---
PT ADMITTED TO ROOM 322 PER CART FROM ED, ALERT AND ORIENTED X4, 16F NG IN LEFT NARE, TAPED AT 60CM, IV IN LAC PATENT, SECURE, PT ON RA, VSS. ORIENTED TO ROOM, FLOOR AND POC, ADMISSION ASSESSMENT AND MED REC COMPLETED. IVF STARTED TO INFUSE @ 100 CC/HR, KEPPRA GIVEN ORDERED. PT HAS WRIST SPLINT ON RT WRIST FROM RECENT FX SECONDARY TO FALL, FALL PRECAUTIONS IN PLACE.
[2024-03-01] MEDS ORDERED: NS 1,000 ML IV SCH (05:15)
[2024-03-01] MEDS ORDERED: Ondansetron 4 MG/2 ML VIAL IV PRN (05:15)
[2024-03-01] MEDS ORDERED: Albuterol/Ipratop Respimat **** subs to Albuterol/Ipratrop Nebule IH PRN (05:45)
[2024-03-01] MEDS ORDERED: OYSTER SHELL CA1 T22 PO (05:48)
[2024-03-01] MEDS ORDERED: levETIRAcetam 100 ML IV SCH (06:00)
[2024-03-01] MEDS ORDERED: Albuterol/Ipratropium 3 MG-0.5 MG/3 ML Neb Soln IH PRN (06:15)
[2024-03-01] MEDS ORDERED: fentaNYL 50 MCG/ML 2 ML VIAL IV PRN (07:00)
[2024-03-01] MEDS ORDERED: Budesonide Neb Susp 0.5 MG/2 ML AMP IH SCH (07:00)
[2024-03-01] MEDS ORDERED: [UNRECOGNIZED DRUG - REMARK] IH SCH (07:00)
[2024-03-01] MEDS ORDERED: lamoTRIgine 100 MG TAB PO SCH (09:00)
[2024-03-01] MEDS ORDERED: Ranolazine ER 500 MG TAB PO SCH (09:00)
[2024-03-01] MEDS ORDERED: Magnesium Oxide 400 MG TAB PO SCH (09:00)
[2024-03-01] MEDS ORDERED: Clopidogrel 75 MG TAB PO SCH (09:00)
[2024-03-01] MEDS ORDERED: Pantoprazole 40 MG in NS 10 ML IV SCH (09:00)
--- NOTE | 2024-03-01 10:16 | NUR ---
Pt. sitting up in bed. Pt. is A&OX3, assessment complete. INT to lt. forearm patent. Pt. reports abd. pain, see mar. Giving pain meds per orders. Pt. NG tube to LIS. Pt. denies further needs, call light within reach.
--- NOTE | 2024-03-01 11:39 | NUR ---
Initial visit attempt; Patient sleeping, Rabbit Dresser left card offering God's blessings and information regarding the availability of Spiritual Care at our hospital.
--- NOTE | 2024-03-01 13:04 | NUR ---
forensic social worker met with patient at bedside to complete intake. Patient confirmed that she lives in [place] alone with her daughter Erma ([phone]) living next door. Patient verified that her cousin Ayesha Suarez ([phone])is her guardian/DPOA. Patient states she has a new PCP but cannot remember the name. Patient uses [facility] and uses CPAP at home. Patient is hopeful to be able to return home independently at discharge. Discharge plan: Home
[2024-03-01 20:33] LABS: COLLECTION METHOD CATHETER
[2024-03-01 20:42] LABS: URINE APPEARANCE CLOUDY (CLEAR/HAZY); URINE BLOOD NEGATIVE (NEGATIVE); URINE COLOR Dark Yellow (YELLOW); URINE GLUCOSE NEGATIVE (NEGATIVE); URINE KETONE TRACE (NEGATIVE); URINE NITRATE POSITIVE (NEGATIVE); URINE PROTEIN(semi-quant) 1+ (NEGATIVE)
[2024-03-01 20:59] LABS: MUCOUS PRESENT (NOT PRESENT)
[2024-03-01 21:00] LABS: URINE BACTERIA MANY /hpf (NONE SEEN)
[2024-03-01] MEDS ORDERED: Amitriptyline 10 MG TAB PO SCH (21:00)
[2024-03-01] MEDS ORDERED: Rosuvastatin 40 MG **** subs to Atorvastatin 80 MG PO SCH (21:00)
[2024-03-01] MEDS ORDERED: cefTRIAXone 1 G in Water For Injection,Sterile 10 ML IV SCH (21:45)
--- NOTE | 2024-03-01 22:30 | NUR ---
NG TUBE SLIPPED OUT OF NARE, CURRENTLY AT 20CM BRAYDEN ON TUBE, TUBE REPOSITIONED TO 57CM AND SECURED IN PLACE, GOOD OUTPUT FROM NG AT THIS TIME, PLACEMENT VERIFIED WITH AIR/AUSCULTATION. PT TOLERATED WELL.
[2024-03-02] VITALS (11 sets, daily range): BP systolic 100–145; BP diastolic 55–80; PULSE 63–72; TEMP 98.4–98.9
--- NOTE | 2024-03-02 06:28 | NUR ---
DATA ANALYTICS CHIEF SCIENTIST UNABLE TO OBTAIN BLOOD FOR AM LABS, WILL RETURN LATER THIS MORNING TO TRY AGAIN.
--- NOTE | 2024-03-02 06:29 | NUR ---
NG TO LIS WITH 300 CC OUT THIS SHIFT, OUTPUT HAS CHANGED FROM LIGHT TO DARK BROWN. PT C/O MILD ABD PAIN TONIGHT, NO PAIN MEDS REQUESTED, URINE SPECIMEN SENT TO LAB, POSITIVE FOR UTI, ANBX STARTED PER LYNNE Anthony APRN. IVF INFUSING PER PIV. PT ON 2L O2 PER NC
--- NOTE | 2024-03-02 08:00 | NUR ---
PATIENT IS ORIENTED BUT DROWSY. VSS. 02 @ 2L PER NC WITH SATS IN MID 90'S. NO C/O N/V. NG TO LIS WITH SMALL AMOUNT OF DARK GREEN GASTRIC OUTPUT IN CANISTER. AM MEDS GIVEN, NG CLAMPED FOR 30 MIN, TOLERATED WELL. NPO WITH CHIPS. NO C/O ABD PAIN. PATIENT REPORTS NO BM. ABD IS DISTENDED WITH HYPO BOWL SOUNDS. HEAD TO TOE ASSESSMENT COMPLETE. NO OTHER NEEDS AT THIS TIME. CALL LIGHT IN REACH.
[2024-03-02 12:16] LABS: BASO % 0.2 % (0.0-2.0); EOS # 0.1 K/mm3 (0.0-0.7); EOS % 1.2 % (0.0-4.0); GRAN # 2.2 K/mm3 (1.4-6.5); GRAN % 45.5 % (42.2-75.2); LYMPH # 2.1 K/mm3 (1.2-3.4); LYMPH % 42.9 % (20.0-51.0); MEAN CELL VOLUME 98 fl (80.0-100.0); MEAN CORPUSCULAR HGB CONC 32 g/dl (33.0-37.0); MEAN PLATELET VOLUME 10.9 fl (7.4-10.4); MONO # 0.5 K/mm3 (0.1-0.6); PLATELET COUNT 151 K/mm3 (130-400); RED BLOOD COUNT 3.02 M/mm3 (4.10-5.30); REDCELL DISTRIBUTION WIDTH-CV 14.6 % (11.5-14.5)
[2024-03-02 12:20] LABS: HEMATOCRIT 29.6 % (37.0-47.0); HEMOGLOBIN 9.5 g/dl (12.5-16.0); MEAN CORPUSCULAR HEMOGLOBIN 31 pg (27-31)
[2024-03-02 12:28] LABS: CALCIUM 8.4 mg/dL (8.4-10.2); CREATININE, serum 0.73 mg/dL (0.57-1.11); POTASSIUM 4.1 mEq/L (3.5-4.5)
--- NOTE | 2024-03-02 13:25 | NUR ---
NG CLAMPED PER . ORDERS FOR 4 HOUR CLAMP TRIAL. PATIENT SLEEPING WITH NO NEEDS. CALL LIGHT IN REACH.
--- NOTE | 2024-03-02 13:56 | NUR ---
CRISTOBAL reviewed chart. PT note recommends SNF. SW attempted to visit with patient to discuss, patient sleeping soundly. CRISTOBAL called patient's DPOA Ayesha ([phone]) to discuss patient's discharge. Ayesha stated that she does NOT have Guardianship but has medical and financial DPOA. Ayesha stated she was not informed patient being in hospital and explained that patient's daughter has caused distance between patient and Ayesha. Ayesha updated on patient status and recommendation from PT. She states that patient has refused this in the past when recommended. Ayesha stated she would prefer referrals to be sent to [facility], [facility] and [facility] in that order if patient is agreeable. Ayesha states she is a licensed clinical social work lecturer herself and has attempted many times to assist patient without success. CRISTOBAL will attempt to meet with patient again to discuss discharge plan. Discharge plan: Home vs SNF
[2024-03-03] VITALS (11 sets, daily range): BP systolic 111–147; BP diastolic 53–72; PULSE 57–69; TEMP 98.3–99.2
[2024-03-03 07:04] LABS: BASO % 0.4 % (0.0-2.0); EOS # 0.1 K/mm3 (0.0-0.7); EOS % 1.6 % (0.0-4.0); GRAN # 2.9 K/mm3 (1.4-6.5); GRAN % 51.6 % (42.2-75.2); HEMOGLOBIN 10.1 g/dl (12.5-16.0); LYMPH # 2.1 K/mm3 (1.2-3.4); LYMPH % 37.9 % (20.0-51.0); MEAN CELL VOLUME 101 fl (80.0-100.0); MEAN CORPUSCULAR HEMOGLOBIN 31 pg (27-31); MEAN CORPUSCULAR HGB CONC 30 g/dl (33.0-37.0); MEAN PLATELET VOLUME 11.4 fl (7.4-10.4); MONO # 0.5 K/mm3 (0.1-0.6); MONO % 8.3 % (1.7-9.3); PLATELET COUNT 117 K/mm3 (130-400); RED BLOOD COUNT 3.28 M/mm3 (4.10-5.30); REDCELL DISTRIBUTION WIDTH-CV 14.2 % (11.5-14.5)
--- NOTE | 2024-03-03 07:04 | NUR ---
TOLERATED NG CLAMPED ALL THIS SHIFT, NO N/V OR C/O INCREASED PAIN OR DISTENTION, PASSING GAS, NO BM. IVF INFUSING PER PIV, NPO EXCEPT FOR SIPS/CHIPS. O2 WEANED TO 1L PER NC DURING THE NOC, BUT REQUIRED INCREASE BACK TO 2L.
[2024-03-03 07:14] LABS: HEMATOCRIT 33.2 % (37.0-47.0)
[2024-03-03 07:22] LABS: CREATININE, serum 0.78 mg/dL (0.57-1.11); POTASSIUM 5.2 mEq/L (3.5-4.5)
--- NOTE | 2024-03-03 08:00 | NUR ---
PATIENT IS A&O. VSS. 02 @ 2L PER NC WITH SATS IN LOW TO MID 90'S. UNIT MANAGER RN RN REPORTED THEY TRIED TO WEAN HER OFF BUT HER SATS DROPPED INTO THE 80'S. NO C/O PAIN, N/V OR SOA. NG CLAMPED AND PATIENT TOLERATING WELL. NOTIFIED PROVIDER OF NG CLAMPED AND AM GLUCOSE. SEE ORDERS FOR CLEARS. PATIENT DRINKING JUICE & BROTH, ALSO TOLERATING WELL SO FAR. AM MEDS GIVEN. HEAD TO TOE ASSESSMENT COMPLETE. ASSISTED TO COMMODE TO VOID. NO OTHER NEEDS AT THIS TIME. CALL LIGHT IN REACH.
--- NOTE | 2024-03-03 09:52 | NUR ---
SW attended clinical rounds with team. Patient recommended for SNF per therapy. SW met with patient to discuss discharge plan. Patient declining SNF and HH and states her daughter lives with her and is available to help her if needed. Discharge Plan: Home
--- NOTE | 2024-03-03 12:50 | NUR ---
PATIENT ASSISTED TO COMMODE AND WAS ABLE TO HAVE A BM, SOFT-FORMED WITH SOME LIQUID STOOL NOTED. PATIENT TOLERATING CLEARS. LEFT MESSAGE FOR PROVIDER ABOUT DIET AND POSSIBILITY OF PULLING NG.
--- NOTE | 2024-03-03 13:20 | NUR ---
DC'Caitie NG PER ORDERS. PATIENT TOLERATED WELL. EXPLAINED DIET ADVANCED TO LOW FIBER. PATIENT VERBALIZED UNDERSTANDING.
--- NOTE | 2024-03-03 18:11 | NUR ---
PT'S IV PUMP CONTINUES TO ALARM DISTAL OCCLUSION DUE TO IV IN LEFT AC, PT MOVING ARM. THIS NURSE OFFERED TO MOVE IV SITE TO FIX ALARMING. PT STATED SHE HOPES TO GO HOME SOON, SO SHE DIDN'T WANT ANOTHER IV STICK. PT AMB TO BR, VOIDED WITHOUT DIFFICULTY, DEPENDS CHANGED, RETURNED TO BED. CALL LT IN REACH, RESTING IN BED, WATCHING TV.
--- NOTE | 2024-03-03 19:29 | NUR ---
report received from jim alicia. pt sitting in bed finishing dinner. pt denies pain. fall precautions in place. call light in reach. all needs met at this time.
--- NOTE | 2024-03-03 20:51 | NUR ---
shift assessment complete, see documentation. pt denies pain. pt tolerated hs meds well. pt watching tv and relaxing in bed. fall precautions in place. call light in reach. all needs met at this time.
[2024-03-04] VITALS (8 sets, daily range): BP systolic 107–144; BP diastolic 57–70; PULSE 54–58; TEMP 98.5–98.6
--- NOTE | 2024-03-04 01:00 | NUR ---
Resumed cares from DEMETRIS Elizabeth, assessed this time, see shift assessment, denies pain or discomfort, still on oxygen at 2LPM, assisted to the bathroom and voided fine, denies further needs, call light and personal item within reach, will continue to monitor.
[2024-03-04 06:52] LABS: BASO % 0.2 % (0.0-2.0); EOS # 0.1 K/mm3 (0.0-0.7); EOS % 1.8 % (0.0-4.0); GRAN # 1.8 K/mm3 (1.4-6.5); GRAN % 38.9 % (42.2-75.2); LYMPH # 2.2 K/mm3 (1.2-3.4); LYMPH % 49.4 % (20.0-51.0); MEAN CORPUSCULAR HGB CONC 32 g/dl (33.0-37.0); MEAN PLATELET VOLUME 11.5 fl (7.4-10.4); MONO # 0.4 K/mm3 (0.1-0.6); MONO % 9.5 % (1.7-9.3); PLATELET COUNT 132 K/mm3 (130-400); REDCELL DISTRIBUTION WIDTH-CV 14.1 % (11.5-14.5)
[2024-03-04 06:55] LABS: HEMATOCRIT 27.9 % (37.0-47.0); MEAN CELL VOLUME 96 fl (80.0-100.0); MEAN CORPUSCULAR HEMOGLOBIN 31 pg (27-31)
--- NOTE | 2024-03-04 08:00 | NUR ---
PATIENT IS A&O. VSS. 02 @ 2L PER NC. BAIL BONDSMAN TURNED OXYGEN OFF THIS AM FOR 15 MIN TO SEE IF PATIENT COULD BE WEANED OFF OXYGEN. PATIENT SATS DROPPED TO 86% ON RA. PATIENT 02 SATS IN LOW TO MID 90'S ON 2L. PATIENT WILL REQUIRE PULSE OX AND LIKELY NEED HOME 0XYGEN SET UP BY SOCIAL WORK FOR DISCHARGE. NO C/O PAIN OR NAUSEA. PATIENT TOLERATED LOW FIBER DIET LAST NIGHT. IV FLUIDS INFUSING VIA PUMP INTO LEFT AC IV. AM MEDS GIVEN. PATIENT HAD BM YESTERAY. ABD IS ROUND, SOFT AND WITH POSITIVE BOWL SOUNDS. HEAD TO TOE ASSESSMENT COMPLETE. NO OTHER NEEDS AT THIS TIME. CALL LIGHT IN REACH.
--- NOTE | 2024-03-04 09:36 | NUR ---
SW met with patient to discuss Medicare IM form. Patient agreeable to discharge to home, signed form. Copy provided to patient and original on chart. Discharge plan: Home
--- NOTE | 2024-03-04 10:20 | NUR ---
RT PERFORMED PULSE OX AND REPORTS PATIENT QUALIFIES FOR HOME OXYGEN AT 2L. NOTIFIED [employer].
--- NOTE | 2024-03-04 10:37 | NUR ---
Patient's SpO2 at rest on room air 85%. Increased to 2L with Sp02 93. Ambulated with 2L NC Sp02 95%.
[2024-03-04] MEDS ORDERED: OXYGEN NASAL.CANN (10:50)
[2024-03-04] MEDS ORDERED: Phytonadione (Vitamin K) 5 MG/5 ML Oral Susp PO ONE (11:00)
--- NOTE | 2024-03-04 11:30 | NUR ---
SW notified that patient is requiring 2 LPM oxygen for discharge. Orders and demographic information secure emailed to [facility] for delivery of portable tank to room and home concentrator set up. Discharge plan: Home with oxygen
--- NOTE | 2024-03-04 12:00 | NUR ---
OXYGEN DELIVERY FEDE HERE. PATIENT UPSET, DOESN'T WANT HOME OXYGEN EVEN THOUGH SHE UNDERSTANDS HER OXYGEN DROPS DOWN INTO THE MID 80'S ON RA WITH ANY ACTIVITY AND WHILE SLEEPING. PATIENT SENT OXYGEN & DELIVERY FEDE AWAY AND REFUSED. HI LIFT OPERATOR NOTIFIED. AWAITING SURGEON TO ROUND.
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
[2024-03-04] MEDS ORDERED: cefTRIAXone 1 G in Water For Injection,Sterile 10 ML IV SCH (13:30)
--- NOTE | 2024-03-04 14:00 | NUR ---
PATIENT DISCHARGING HOME. GAVE DISCHARGE INSTRUCTIONS, DISCUSSED F/U APTS AND ANSWERED QUESTIONS/CONCERNS. DC'D LEFT AC IV AND COVERED SITE WITH GAUZE & COBAN. PATIENT IS DRESSED, PACKED AND ESCORTED OUT VIA WC TO PERSONAL VEHICLE WITH DAUGHTER & GRANDKIDS.
[2024-03-04] MEDS ORDERED: levETIRAcetam 500 MG TAB PO SCH (21:00)
== END 2024-03-04 14:00 | disposition home or self-care (01) | DRG 389 ==
LOC: COL.ER 22:11 → SURG 03-01 04:13
PROVIDERS: Emergency Medicine; Nurse Practitioner Family; ADMIT Internal Medicine
DX: K56.609 Unspecified intestinal obstruction, unspecified as to partial versus complete obstruction (principal); I50.32 Chronic diastolic (congestive) heart failure; R18.8 Other ascites; I25.10 Atherosclerotic heart disease of native coronary artery without angina pectoris; K21.9 Gastro-esophageal reflux disease without esophagitis; M85.80 Other specified disorders of bone density and structure, unspecified site; I11.0 Hypertensive heart disease with heart failure; F32.A Depression, unspecified; I65.23 Occlusion and stenosis of bilateral carotid arteries; D64.9 Anemia, unspecified; K52.9 Noninfective gastroenteritis and colitis, unspecified; G40.909 Epilepsy, unspecified, not intractable, without status epilepticus; G47.33 Obstructive sleep apnea (adult) (pediatric); J44.9 Chronic obstructive pulmonary disease, unspecified; Z95.1 Presence of aortocoronary bypass graft; Z87.891 Personal history of nicotine dependence; Z88.8 Allergy status to other drugs, medicaments and biological substances; Z95.818 Presence of other cardiac implants and grafts; Z90.710 Acquired absence of both cervix and uterus; Z91.199 Patient's noncompliance with other medical treatment and regimen due to unspecified reason; Z95.5 Presence of coronary angioplasty implant and graft; Z79.82 Long term (current) use of aspirin; Z79.899 Other long term (current) drug therapy; Z79.01 Long term (current) use of anticoagulants; I69.992 Facial weakness following unspecified cerebrovascular disease; Z23 Encounter for immunization
CPT/HCPCS: C9113; J0696; J1650; J1953; J2270; J2405; J3010; J7030; Q9967